=== PATIENT | male | born 1945 | race Caucasian/White ===

== ENCOUNTER → 2016-09-30 | Outpatient (CLI) | payer OTHER ==
[~2016-09-30] MED LIST: ATOR1TAB18 PO; BREO1INH3 INH; LASI40TA PO; LEVA500T PO; METO-209 PO; NITR4TASL SL; NYST50SS SS; OCUVTAB4 PO; OMEP20CA3 PO; TRAM37.53 PO; VITMTA PO; WARF-18 PO; WARF-23 PO
[2016-09-30 16:14] LABS: INR 2.68
== END ==
LOC: M LAB 15:20
PROVIDERS: ATTEND Nurse Practitioner Family
DX: I48.91 Unspecified atrial fibrillation (principal); Z51.81 Encounter for therapeutic drug level monitoring; Z79.01 Long term (current) use of anticoagulants

== ENCOUNTER → 2016-10-05 | Outpatient (CLI) | payer OTHER ==
[2016-10-05 16:32] LABS: MEAN CORPUSCULAR HEMOGLOBIN 29.5 pg (27.0-33.0); MEAN CORPUSCULAR HGB CONC 32.2 g/dl (32.0-36.5); MEAN CORPUSCULAR VOLUME 91.7 fl (80.0-96.0)
[2016-10-05 16:39] LABS: ALBUMIN 3.9 GM/DL (3.2-5.2); ALBUMIN/GLOBULIN RATIO 1.05 (1.00-1.93); ALKALINE PHOSPHATASE 197 U/L (45-117); ALT/SGPT 46 U/L (12-78); ANION GAP 5 MEQ/L (8-16); AST/SGOT 32 U/L (15-37); BILIRUBIN,TOTAL 1.1 MG/DL (0.2-1.0); BLOOD UREA NITROGEN 21 MG/DL (7-18); CALCIUM LEVEL 8.5 MG/DL (8.8-10.2); CARBON DIOXIDE LEVEL 35 MEQ/L (21-32); CHLORIDE LEVEL 102 MEQ/L (98-107); CREATININE FOR GFR 0.93 MG/DL (0.70-1.30); GLOMERULAR FILTRATION RATE > 60.0 (>42); GLUCOSE, FASTING 99 MG/DL (83-110); MAGNESIUM LEVEL 2.1 MG/DL (1.8-2.4); POTASSIUM SERUM 3.7 MEQ/L (3.5-5.1); SODIUM LEVEL 142 MEQ/L (136-145); TOTAL PROTEIN 7.6 GM/DL (6.4-8.2)
== END ==
LOC: M LAB 15:28
PROVIDERS: ATTEND Physician Assistant
DX: I48.2 Chronic atrial fibrillation (principal)

== ENCOUNTER → 2016-10-31 | Outpatient (CLI) | payer OTHER ==
[2016-10-31 16:50] LABS: INR 2.65
== END | disposition home or self-care (01) ==
LOC: M LAB 16:01
PROVIDERS: ATTEND Physician Assistant
DX: I50.32 Chronic diastolic (congestive) heart failure (principal); Z51.81 Encounter for therapeutic drug level monitoring; Z79.01 Long term (current) use of anticoagulants

== ENCOUNTER → 2016-11-29 | Outpatient (CLI) | payer OTHER ==
[2016-11-29 18:05] LABS: INR 2.19
== END ==
LOC: M LAB 15:58
PROVIDERS: ATTEND Nurse Practitioner Family
DX: I48.2 Chronic atrial fibrillation (principal); Z51.81 Encounter for therapeutic drug level monitoring; Z79.01 Long term (current) use of anticoagulants

== ENCOUNTER → 2016-12-01 | Outpatient (CLI) | payer OTHER ==
[2016-12-01 16:56] LABS: MEAN CORPUSCULAR HEMOGLOBIN 31.2 pg (27.0-33.0); MEAN CORPUSCULAR HGB CONC 33.5 g/dl (32.0-36.5); MEAN CORPUSCULAR VOLUME 93.1 fl (80.0-96.0); WHITE BLOOD COUNT 6.4 K/mm3 (4.0-10.0)
[2016-12-01 17:15] LABS: ALBUMIN 3.9 GM/DL (3.2-5.2); ALBUMIN/GLOBULIN RATIO 1.05 (1.00-1.93); ALKALINE PHOSPHATASE 173 U/L (45-117); ALT/SGPT 48 U/L (12-78); AST/SGOT 33 U/L (15-37); BILIRUBIN,DIRECT 0.3 MG/DL (0.0-0.2); BILIRUBIN,TOTAL 0.9 MG/DL (0.2-1.0); PERCENT SATURATION 23.8 % (19.7-37.4); TOTAL IRON BINDING CAPACITY 395 UG/DL (250-450); TOTAL PROTEIN 7.6 GM/DL (6.4-8.2)
[2016-12-01 21:14] LABS: BASOPHILS 1 % (0-4); EOSINOPHILS 10 % (0-5); SMUDGE CELLS 2+
== END ==
LOC: M LAB 16:14
PROVIDERS: ATTEND Family Medicine
DX: R74.0 Nonspecific elevation of levels of transaminase and lactic acid dehydrogenase [LDH] (principal); Z79.899 Other long term (current) drug therapy; Z11.59 Encounter for screening for other viral diseases

== ENCOUNTER → 2016-12-16 | Outpatient (CLI) | payer OTHER ==
--- NOTE | 2016-12-16 13:53 | REP ---
Right upper quadrant sonography: History: Elevated transaminases and liver function studies. Findings: Scanning through the right upper quadrant of the abdomen demonstrates normal sized thin-walled gallbladder without evidence of stone or polyp. Common bile duct is normal measuring 0.2 cm in greatest diameter. No focal liver lesion is seen. The body and tail of the pancreas are obscured by abdominal gas. There is no evidence of ascites or right renal abnormality. The right kidney measures 12.8 x 6.5 x 4.7 cm. Impression: No abnormality noted. Body and tail of the pancreas are obscured by abdominal gas. Signed by Jose Angel Ghosh MD 12/16/2016 03:13 P
== END ==
LOC: M RAD 09:41
PROVIDERS: ATTEND Family Medicine
DX: R74.0 Nonspecific elevation of levels of transaminase and lactic acid dehydrogenase [LDH] (principal)

== ENCOUNTER → 2016-12-29 | Outpatient (CLI) | payer OTHER ==
[2016-12-29 17:38] LABS: INR 2.13
== END ==
LOC: M LAB 16:08
PROVIDERS: ATTEND Nurse Practitioner Family
DX: I48.2 Chronic atrial fibrillation (principal)

== ENCOUNTER → 2017-01-31 | Outpatient (CLI) | payer OTHER ==
[2017-01-31 15:37] LABS: INR 2.39
== END ==
LOC: M LAB 15:01
PROVIDERS: ATTEND Physician Assistant
DX: I48.2 Chronic atrial fibrillation (principal)

== ENCOUNTER → 2017-03-02 | Outpatient (CLI) | payer OTHER ==
[~2017-03-02] MED LIST changes: -ATOR1TAB18 PO; +ATOR80TA59 PO; +LEVA1TAB2 PO; -LEVA500T PO; -METO-209 PO; +METO1TAB33 PO
[2017-03-02 16:19] LABS: INR 2.08
== END ==
LOC: M LAB 15:28
PROVIDERS: ATTEND Nurse Practitioner Family
DX: Z51.81 Encounter for therapeutic drug level monitoring (principal); Z79.01 Long term (current) use of anticoagulants; I48.2 Chronic atrial fibrillation

== ENCOUNTER → 2017-04-01 | Outpatient (CLI) | payer OTHER ==
[2017-04-01 16:01] LABS: INR 2.69
== END ==
LOC: M LAB 15:17
PROVIDERS: ATTEND Internal Medicine Cardiovascular Disease
DX: Z51.81 Encounter for therapeutic drug level monitoring (principal); Z79.01 Long term (current) use of anticoagulants; I48.2 Chronic atrial fibrillation

== ENCOUNTER → 2017-04-07 | Outpatient (CLI) | payer OTHER ==
[2017-04-07 13:29] LABS: MEAN CORPUSCULAR HEMOGLOBIN 30.3 pg (27.0-33.0); MEAN CORPUSCULAR HGB CONC 33.4 g/dl (32.0-36.5); MEAN CORPUSCULAR VOLUME 90.6 fl (80.0-96.0); RED CELL DISTRIBUTION WIDTH 13.2 % (11.5-14.5); WHITE BLOOD COUNT 5.9 K/mm3 (4.0-10.0)
[2017-04-07 14:21] LABS: ALBUMIN 3.8 GM/DL (3.2-5.2); ALKALINE PHOSPHATASE 172 U/L (45-117); ALT/SGPT 37 U/L (12-78); ANION GAP 7 MEQ/L (8-16); AST/SGOT 30 U/L (15-37); BILIRUBIN,TOTAL 1.3 MG/DL (0.2-1.0); BLOOD UREA NITROGEN 17 MG/DL (7-18); CALCIUM LEVEL 8.7 MG/DL (8.8-10.2); CARBON DIOXIDE LEVEL 33 MEQ/L (21-32); CHLORIDE LEVEL 103 MEQ/L (98-107); CHOLESTEROL LEVEL 105 MG/DL (<200); CREATININE FOR GFR 0.81 MG/DL (0.70-1.30); GLOMERULAR FILTRATION RATE > 60.0 (>42); GLUCOSE, FASTING 105 MG/DL (83-110); MAGNESIUM LEVEL 2.4 MG/DL (1.8-2.4); POTASSIUM SERUM 3.7 MEQ/L (3.5-5.1); SODIUM LEVEL 143 MEQ/L (136-145); TOTAL PROTEIN 7.6 GM/DL (6.4-8.2); TRIGLYCERIDES LEVEL 165 MG/DL (<150)
== END ==
LOC: M LAB 12:48
PROVIDERS: ATTEND Physician Assistant
DX: I25.10 Atherosclerotic heart disease of native coronary artery without angina pectoris (principal); I48.2 Chronic atrial fibrillation; I50.32 Chronic diastolic (congestive) heart failure; E78.00 Pure hypercholesterolemia, unspecified

== ENCOUNTER → 2017-04-20 | Outpatient (CLI) | payer OTHER ==
[2017-04-20 15:32] LABS: INR 3.15
== END ==
LOC: M LAB 15:09
PROVIDERS: ATTEND Internal Medicine Cardiovascular Disease
DX: Z51.81 Encounter for therapeutic drug level monitoring (principal); Z79.01 Long term (current) use of anticoagulants; I48.2 Chronic atrial fibrillation

== ENCOUNTER → 2017-04-24 | Outpatient (CLI) | payer OTHER ==
[2017-04-24 18:33] LABS: INR 2.97
== END ==
LOC: M LAB 15:07
PROVIDERS: ATTEND Physician Assistant
DX: I48.2 Chronic atrial fibrillation (principal)

== ENCOUNTER → 2017-05-09 | Outpatient (CLI) | payer OTHER ==
[2017-05-09 16:27] LABS: INR 1.56
== END ==
LOC: M LAB 15:12
PROVIDERS: ATTEND Nurse Practitioner Family
DX: I48.2 Chronic atrial fibrillation (principal)

== ENCOUNTER → 2017-05-24 | Outpatient (CLI) | payer OTHER ==
[2017-05-24 15:23] LABS: INR 1.43
== END ==
LOC: M LAB 14:40
PROVIDERS: ATTEND Internal Medicine Cardiovascular Disease
DX: I48.2 Chronic atrial fibrillation (principal); Z51.81 Encounter for therapeutic drug level monitoring; Z79.01 Long term (current) use of anticoagulants

== ENCOUNTER → 2017-06-14 | Outpatient (CLI) | payer OTHER ==
[2017-06-14 18:39] LABS: INR 1.46
== END ==
LOC: M LAB 15:41
PROVIDERS: ATTEND Nurse Practitioner Family
DX: I48.2 Chronic atrial fibrillation (principal)

== ENCOUNTER → 2017-06-29 | Outpatient (CLI) | payer OTHER ==
[2017-06-29 16:53] LABS: INR 1.62
== END ==
LOC: M LAB 15:41
PROVIDERS: ATTEND Physician Assistant
DX: I48.2 Chronic atrial fibrillation (principal)

== ENCOUNTER → 2017-07-13 | Outpatient (CLI) | payer OTHER ==
[2017-07-13 16:28] LABS: INR 2.06
== END ==
LOC: M LAB 15:31
PROVIDERS: ATTEND Physician Assistant
DX: Z51.81 Encounter for therapeutic drug level monitoring (principal); Z79.01 Long term (current) use of anticoagulants; I48.2 Chronic atrial fibrillation

== ENCOUNTER → 2017-08-08 | Outpatient (CLI) | payer OTHER ==
[2017-08-08 16:48] LABS: INR 2.55
== END ==
LOC: M LAB 15:58
PROVIDERS: ATTEND Physician Assistant
DX: I48.2 Chronic atrial fibrillation (principal)

== ENCOUNTER → 2017-09-05 | Outpatient (CLI) | payer OTHER ==
[2017-09-05 13:33] LABS: INR 2.74; PROTHROMBIN TIME 30.2 SECONDS (12.4-14.5)
== END ==
LOC: M LAB 12:59
DX: I48.2 Chronic atrial fibrillation (principal)
CPT/HCPCS: 85610

== ENCOUNTER → 2017-10-03 | Outpatient (CLI) | payer OTHER ==
[2017-10-03 16:10] LABS: INR 4.31; PROTHROMBIN TIME 43.6 SECONDS (12.4-14.5)
== END ==
LOC: M LAB 14:32
DX: I48.2 Chronic atrial fibrillation (principal)
CPT/HCPCS: 85610

== ENCOUNTER → 2017-10-06 | Outpatient (CLI) | payer OTHER ==
[2017-10-06 09:33] LABS: INR 3.65; PROTHROMBIN TIME 38.1 SECONDS (12.4-14.5)
== END ==
LOC: M LAB 08:25
DX: I48.2 Chronic atrial fibrillation (principal)
CPT/HCPCS: 85610

== ENCOUNTER → 2017-10-09 | Outpatient (CLI) | payer OTHER ==
[2017-10-09 10:56] LABS: HEMATOCRIT 44.4 % (42.0-52.0); HEMOGLOBIN 14.2 g/dl (14.0-18.0); MEAN CORPUSCULAR HEMOGLOBIN 28.9 pg (27.0-33.0); MEAN CORPUSCULAR VOLUME 90.2 fl (80.0-96.0); PLATELET COUNT, AUTOMATED 210 10^3/uL (150-450); RED BLOOD COUNT 4.92 10^6/uL (4.30-6.10); RED CELL DISTRIBUTION WIDTH 13.5 % (11.5-14.5); WHITE BLOOD COUNT 7.2 10^3/uL (4.0-10.0)
[2017-10-09 11:27] LABS: ALBUMIN 3.5 GM/DL (3.2-5.2); ALBUMIN/GLOBULIN RATIO 0.81 (1.00-1.93); ALKALINE PHOSPHATASE 192 U/L (45-117); ALT/SGPT 102 U/L (12-78); ANION GAP 7 MEQ/L (8-16); AST/SGOT 58 U/L (7-37); BILIRUBIN,TOTAL 1.2 MG/DL (0.2-1.0); BLOOD UREA NITROGEN 17 MG/DL (7-18); CARBON DIOXIDE LEVEL 39 MEQ/L (21-32); CHLORIDE LEVEL 94 MEQ/L (98-107); GLOMERULAR FILTRATION RATE > 60.0 (>42); GLUCOSE, FASTING 108 MG/DL (70-100); MAGNESIUM LEVEL 2.3 MG/DL (1.8-2.4); POTASSIUM SERUM 4.2 MEQ/L (3.5-5.1); SODIUM LEVEL 140 MEQ/L (136-145); TOTAL PROTEIN 7.8 GM/DL (6.4-8.2)
== END ==
LOC: M LAB 10:15
DX: I25.10 Atherosclerotic heart disease of native coronary artery without angina pectoris (principal); I48.2 Chronic atrial fibrillation; I50.32 Chronic diastolic (congestive) heart failure; E78.00 Pure hypercholesterolemia, unspecified
CPT/HCPCS: 83735

== ENCOUNTER → 2017-10-16 | Outpatient (CLI) | payer OTHER ==
[2017-10-16 15:53] LABS: PROTHROMBIN TIME 27.1 SECONDS (12.4-14.5)
== END ==
LOC: M LAB 15:21
DX: Z79.01 Long term (current) use of anticoagulants (principal); I48.2 Chronic atrial fibrillation
CPT/HCPCS: 85610

== ENCOUNTER → 2017-10-31 | Outpatient (CLI) | payer OTHER ==
[2017-10-31 15:46] LABS: INR 2.67; PROTHROMBIN TIME 29.6 SECONDS (12.4-14.5)
== END ==
LOC: M LAB 15:07
DX: I48.2 Chronic atrial fibrillation (principal); Z79.01 Long term (current) use of anticoagulants
CPT/HCPCS: 85610

== ENCOUNTER → 2017-11-27 | Outpatient (CLI) | payer OTHER ==
[2017-11-27 17:42] LABS: INR 2.49
== END ==
LOC: M LAB 16:29
DX: Z51.81 Encounter for therapeutic drug level monitoring (principal); Z79.01 Long term (current) use of anticoagulants; I48.2 Chronic atrial fibrillation
CPT/HCPCS: 85610

== ENCOUNTER → 2017-12-18 | Outpatient (CLI) | payer OTHER ==
[2017-12-18 13:44] LABS: INR 2.07
== END ==
LOC: M LAB 12:52
DX: I48.2 Chronic atrial fibrillation (principal); Z79.01 Long term (current) use of anticoagulants
CPT/HCPCS: 85610

== ENCOUNTER → 2017-12-25 | Outpatient (CLI) | payer OTHER ==
[2017-12-25 17:23] LABS: INR 2.18; PROTHROMBIN TIME 25.1 SECONDS (12.4-14.5)
== END ==
LOC: M LAB 16:40
DX: I48.2 Chronic atrial fibrillation (principal)
CPT/HCPCS: 85610

== ENCOUNTER → 2018-01-02 | Outpatient (CLI) | payer OTHER ==
[2018-01-02 16:54] LABS: ALBUMIN 3.9 GM/DL (3.2-5.2); ALBUMIN/GLOBULIN RATIO 0.95 (1.00-1.93); ALKALINE PHOSPHATASE 182 U/L (45-117); ALT/SGPT 33 U/L (12-78); AST/SGOT 27 U/L (7-37); BILIRUBIN,DIRECT 0.3 MG/DL (0.0-0.2); BILIRUBIN,TOTAL 0.9 MG/DL (0.2-1.0)
== END ==
LOC: M LAB 15:47
DX: E78.00 Pure hypercholesterolemia, unspecified (principal)
CPT/HCPCS: 80076

== ENCOUNTER → 2018-01-23 | Outpatient (CLI) | payer OTHER ==
[2018-01-23 15:21] LABS: INR 1.76; PROTHROMBIN TIME 21.1 SECONDS (12.4-14.5)
== END ==
LOC: M LAB 14:16
DX: I48.2 Chronic atrial fibrillation (principal)
CPT/HCPCS: 85610

== ENCOUNTER → 2018-02-06 | Outpatient (CLI) | payer MEDICARE ==
[2018-02-06 16:25] LABS: INR 2.31; PROTHROMBIN TIME 26.3 SECONDS (12.4-14.5)
== END ==
LOC: M LAB 15:40
DX: I48.2 Chronic atrial fibrillation (principal); Z51.81 Encounter for therapeutic drug level monitoring; Z79.01 Long term (current) use of anticoagulants
CPT/HCPCS: 85610

== ENCOUNTER → 2018-02-21 | Outpatient (CLI) | payer MEDICARE ==
[2018-02-21 16:10] LABS: INR 2.41; PROTHROMBIN TIME 27.1 SECONDS (12.4-14.5)
== END ==
LOC: M LAB 14:44
DX: Z51.81 Encounter for therapeutic drug level monitoring (principal); Z79.01 Long term (current) use of anticoagulants; I48.2 Chronic atrial fibrillation
CPT/HCPCS: 85610

== ENCOUNTER → 2018-03-21 | Outpatient (CLI) | payer MEDICARE | LOC: M LAB 14:48 | DX: I48.2 Chronic atrial fibrillation (principal) | CPT/HCPCS: 85610 ==

== ENCOUNTER → 2018-04-09 | Outpatient (CLI) | payer MEDICARE ==
[2018-04-09 13:21] LABS: HEMATOCRIT 45.6 % (42.0-52.0); HEMOGLOBIN 14.6 g/dl (13.5-17.5); MEAN CORPUSCULAR HEMOGLOBIN 28.6 pg (27.0-33.0); MEAN CORPUSCULAR VOLUME 89.4 fl (80.0-96.0); PLATELET COUNT, AUTOMATED 140 10^3/uL (150-450); RED CELL DISTRIBUTION WIDTH 14.6 % (11.5-14.5); WHITE BLOOD COUNT 9.3 10^3/uL (4.0-10.0)
[2018-04-09 13:52] LABS: ALBUMIN 3.5 GM/DL (3.2-5.2); ALKALINE PHOSPHATASE 128 U/L (45-117); ALT/SGPT 70 U/L (12-78); ANION GAP 7 MEQ/L (8-16); AST/SGOT 35 U/L (7-37); BILIRUBIN,TOTAL 1.1 MG/DL (0.2-1.0); BLOOD UREA NITROGEN 25 MG/DL (7-18); CALCIUM LEVEL 8.4 MG/DL (8.8-10.2); CARBON DIOXIDE LEVEL 35 MEQ/L (21-32); CHLORIDE LEVEL 101 MEQ/L (98-107); CHOLESTEROL LEVEL 126 MG/DL (<200); CHOLESTEROL RISK RATIO 2.333 (<5); CREATININE FOR GFR 0.99 MG/DL (0.70-1.30); GLOMERULAR FILTRATION RATE > 60.0 (>42); GLUCOSE, FASTING 98 MG/DL (70-100); HDL CHOLESTEROL 54 MG/DL (>40); LDL CHOLESTEROL 32.4 MG/DL (<100); MAGNESIUM LEVEL 2.4 MG/DL (1.8-2.4); NON-HDL-C 72 MG/DL; POTASSIUM SERUM 3.9 MEQ/L (3.5-5.1); SODIUM LEVEL 143 MEQ/L (136-145); TOTAL PROTEIN 7.4 GM/DL (6.4-8.2); TRIGLYCERIDES LEVEL 198 MG/DL (<150)
== END ==
LOC: M LAB 12:53
DX: I50.32 Chronic diastolic (congestive) heart failure (principal); E78.00 Pure hypercholesterolemia, unspecified; I25.10 Atherosclerotic heart disease of native coronary artery without angina pectoris; I48.2 Chronic atrial fibrillation; Z51.81 Encounter for therapeutic drug level monitoring; Z79.01 Long term (current) use of anticoagulants
CPT/HCPCS: 83735

== ENCOUNTER → 2018-04-09 | Outpatient (CLI) | payer MEDICARE ==
[2018-04-09 13:36] LABS: INR 4.63; PROTHROMBIN TIME 44.9 SECONDS (12.1-14.4)
== END ==
LOC: M LAB 12:49
DX: I48.2 Chronic atrial fibrillation (principal); Z51.81 Encounter for therapeutic drug level monitoring; Z79.01 Long term (current) use of anticoagulants
CPT/HCPCS: 85610

== ENCOUNTER → 2018-04-18 | Outpatient (CLI) | payer MEDICARE ==
[2018-04-18 14:14] LABS: INR 2.89; PROTHROMBIN TIME 30.9 SECONDS (12.1-14.4)
== END ==
LOC: M LAB 13:38
DX: Z51.81 Encounter for therapeutic drug level monitoring (principal); Z79.01 Long term (current) use of anticoagulants; I48.2 Chronic atrial fibrillation
CPT/HCPCS: 85610

== ENCOUNTER → 2018-05-14 | Outpatient (CLI) | payer MEDICARE ==
[2018-05-14 18:04] LABS: INR 3.13; PROTHROMBIN TIME 32.9 SECONDS (12.1-14.4)
== END ==
LOC: M LAB 17:18
DX: I48.2 Chronic atrial fibrillation (principal)
CPT/HCPCS: 85610

== ENCOUNTER → 2018-05-29 | Outpatient (CLI) | payer MEDICARE ==
[2018-05-29 15:57] LABS: INR 1.53; PROTHROMBIN TIME 18.6 SECONDS (12.1-14.4)
== END ==
LOC: M LAB 15:28
DX: I48.2 Chronic atrial fibrillation (principal)
CPT/HCPCS: 85610

== ENCOUNTER → 2018-06-14 | Outpatient (CLI) | payer MEDICARE ==
[2018-06-14 16:09] LABS: INR 1.83; PROTHROMBIN TIME 21.5 SECONDS (12.1-14.4)
== END ==
LOC: M LAB 15:00
DX: I48.2 Chronic atrial fibrillation (principal)
CPT/HCPCS: 85610

== ENCOUNTER → 2018-06-27 | Outpatient (CLI) | payer MEDICARE ==
[2018-06-27 16:15] LABS: INR 2.39; PROTHROMBIN TIME 26.6 SECONDS (12.1-14.4)
== END ==
LOC: M LAB 15:30
DX: I48.2 Chronic atrial fibrillation (principal)
CPT/HCPCS: 85610

== ENCOUNTER → 2018-07-10 | Outpatient (REF) | payer MEDICARE ==
[2018-07-10 17:38] LABS: NT-PRO BNP 573 PG/ML (<125)
== END ==
LOC: M LAB REF 17:02
DX: R06.02 Shortness of breath (principal)
CPT/HCPCS: 83880

== ENCOUNTER → 2018-07-30 | Outpatient (CLI) | payer MEDICARE ==
[2018-07-30 16:29] LABS: ANION GAP 6 MEQ/L (8-16); BLOOD UREA NITROGEN 28 MG/DL (7-18); CALCIUM LEVEL 8.8 MG/DL (8.8-10.2); CARBON DIOXIDE LEVEL 37 MEQ/L (21-32); CHLORIDE LEVEL 96 MEQ/L (98-107); CREATININE FOR GFR 1.07 MG/DL (0.70-1.30); GLOMERULAR FILTRATION RATE > 60.0 (>42); GLUCOSE, FASTING 90 MG/DL (70-100); MAGNESIUM LEVEL 2.4 MG/DL (1.8-2.4); POTASSIUM SERUM 3.8 MEQ/L (3.5-5.1); SODIUM LEVEL 139 MEQ/L (136-145); THYROID STIMULATING HORMONE 0.492 uIU/ML (0.358-3.740)
== END ==
LOC: M LAB 15:05
DX: R06.02 Shortness of breath (principal); I48.2 Chronic atrial fibrillation; I50.32 Chronic diastolic (congestive) heart failure
CPT/HCPCS: 83735

== ENCOUNTER → 2018-07-31 | Outpatient (CLI) | payer MEDICARE ==
[2018-07-31 14:05] LABS: INR 2.62; PROTHROMBIN TIME 28.6 SECONDS (12.1-14.4)
== END ==
LOC: M LAB 13:21
DX: I48.2 Chronic atrial fibrillation (principal)
CPT/HCPCS: 85610

== ENCOUNTER → 2018-08-23 | Outpatient (CLI) | payer MEDICARE ==
[2018-08-23 15:50] LABS: INR 2.1
== END ==
LOC: M LAB 15:02
PROVIDERS: ATTEND Physician Assistant
DX: I48.2 Chronic atrial fibrillation (principal)

== ENCOUNTER → 2018-09-25 | Outpatient (CLI) | payer MEDICARE ==
[~2018-09-25] MED LIST changes: -LASI40TA PO; +LASI40TA9 PO
[2018-09-25 16:21] LABS: INR 1.79; PROTHROMBIN TIME 21.1 SECONDS (12.1-14.4)
== END ==
LOC: M LAB 15:32
PROVIDERS: ATTEND Physician Assistant
DX: I48.2 Chronic atrial fibrillation (principal)

== ENCOUNTER → 2018-10-09 | Outpatient (CLI) | payer MEDICARE ==
[2018-10-09 16:57] LABS: INR 2.07; PROTHROMBIN TIME 23.7 SECONDS (12.1-14.4)
== END ==
LOC: M LAB 15:56
PROVIDERS: ATTEND Physician Assistant
DX: I48.2 Chronic atrial fibrillation (principal)

== ENCOUNTER → 2018-10-15 | Outpatient (CLI) | payer MEDICARE ==
[2018-10-15 18:00] LABS: INR 2.45; PROTHROMBIN TIME 27.1 SECONDS (12.1-14.4)
== END ==
LOC: M LAB 15:59
PROVIDERS: ATTEND Physician Assistant
DX: I48.2 Chronic atrial fibrillation (principal); Z51.81 Encounter for therapeutic drug level monitoring; Z79.01 Long term (current) use of anticoagulants

== ENCOUNTER → 2018-10-15 | Outpatient (CLI) | payer MEDICARE ==
[2018-10-15 17:41] LABS: HEMATOCRIT 47.3 % (42.0-52.0); HEMOGLOBIN 14.6 g/dl (13.5-17.5); MEAN CORPUSCULAR HEMOGLOBIN 28.2 pg (27.0-33.0); MEAN CORPUSCULAR HGB CONC 30.9 g/dl (32.0-36.5); MEAN CORPUSCULAR VOLUME 91.5 fl (80.0-96.0); PLATELET COUNT, AUTOMATED 120 10^3/uL (150-450); RED BLOOD COUNT 5.17 10^6/uL (4.30-6.10); WHITE BLOOD COUNT 6.5 10^3/uL (4.0-10.0)
[2018-10-15 17:44] LABS: BLOOD UREA NITROGEN 17 MG/DL (7-18); CALCIUM LEVEL 8.8 MG/DL (8.8-10.2); CARBON DIOXIDE LEVEL 36 MEQ/L (21-32); CHLORIDE LEVEL 98 MEQ/L (98-107); CREATININE FOR GFR 0.85 MG/DL (0.70-1.30); GLOMERULAR FILTRATION RATE > 60.0 (>42); GLUCOSE, FASTING 90 MG/DL (70-100); MAGNESIUM LEVEL 2.3 MG/DL (1.8-2.4); POTASSIUM SERUM 4.5 MEQ/L (3.5-5.1); SODIUM LEVEL 139 MEQ/L (136-145)
== END ==
LOC: M LAB 15:54
PROVIDERS: ATTEND Physician Assistant
DX: I50.32 Chronic diastolic (congestive) heart failure (principal); I48.2 Chronic atrial fibrillation; Z51.81 Encounter for therapeutic drug level monitoring; Z79.01 Long term (current) use of anticoagulants

== ENCOUNTER → 2018-11-14 | Outpatient (CLI) | payer MEDICARE ==
[2018-11-14 17:11] LABS: INR 2.15; PROTHROMBIN TIME 24.4 SECONDS (12.1-14.4)
== END ==
LOC: M LAB 15:23
PROVIDERS: ATTEND Physician Assistant
DX: I48.2 Chronic atrial fibrillation (principal)

== ENCOUNTER → 2018-12-18 | Outpatient (CLI) | payer MEDICARE ==
[2018-12-18 16:23] LABS: INR 2.87; PROTHROMBIN TIME 30.7 SECONDS (12.1-14.4)
== END ==
LOC: M LAB 15:49
PROVIDERS: ATTEND Physician Assistant
DX: I48.2 Chronic atrial fibrillation (principal); Z79.01 Long term (current) use of anticoagulants

== ENCOUNTER → 2019-01-08 | Outpatient (CLI) | payer MEDICARE ==
--- NOTE | 2019-01-09 02:03 | REP ---
Clinical: Cough. Technique: PA and lateral. Comparison: 07/10/2018. Findings: Mediastinum and cardiac silhouette are stable with evidence for prior sternotomy and CABG. Lung fernandez demonstrate chronic primarily in the lower lobe pleuroparenchymal changes similar to prior examination. No obvious acute consolidation, effusion, or pneumothorax. Skeletal structures are intact. Impression: Chronic stable changes. If the patient remains symptomatic consider chest CT for further investigation. Electronically Signed by David Muse MD 01/09/2019 01:54 A
== END ==
LOC: M SMT 15:07
PROVIDERS: ATTEND Nurse Practitioner Adult Health
DX: R05 Cough (principal)

== ENCOUNTER → 2019-01-09 | Outpatient (REF) | payer MEDICARE | LOC: M LAB REF 18:00 | PROVIDERS: ATTEND Nurse Practitioner Adult Health | DX: R05 Cough (principal) ==

== ENCOUNTER → 2019-01-16 | Outpatient (CLI) | payer MEDICARE ==
[2019-01-16 16:12] LABS: INR 1.76; PROTHROMBIN TIME 20.8 SECONDS (12.1-14.4)
== END ==
LOC: M LAB 15:08
PROVIDERS: ATTEND Physician Assistant
DX: I48.2 Chronic atrial fibrillation (principal)

== ENCOUNTER → 2019-01-21 | Outpatient (CLI) | payer MEDICARE ==
[2019-01-21 19:56] LABS: BLOOD UREA NITROGEN 19 MG/DL (7-18); CALCIUM LEVEL 8.7 MG/DL (8.8-10.2); CARBON DIOXIDE LEVEL 32 MEQ/L (21-32); CHLORIDE LEVEL 102 MEQ/L (98-107); CREATININE FOR GFR 0.87 MG/DL (0.70-1.30); GLOMERULAR FILTRATION RATE > 60.0 (>42); GLUCOSE, FASTING 101 MG/DL (70-100); POTASSIUM SERUM 4.3 MEQ/L (3.5-5.1); SODIUM LEVEL 140 MEQ/L (136-145)
== END ==
LOC: M LAB 15:16
PROVIDERS: ATTEND Physician Assistant
DX: I50.32 Chronic diastolic (congestive) heart failure (principal)

== ENCOUNTER → 2019-01-31 | Outpatient (CLI) | payer MEDICARE ==
[2019-01-31 16:52] LABS: INR 1.87; PROTHROMBIN TIME 21.9 SECONDS (12.1-14.4)
== END ==
LOC: M LAB 15:49
PROVIDERS: ATTEND Physician Assistant
DX: I48.2 Chronic atrial fibrillation (principal); R05 Cough

== ENCOUNTER → 2019-01-31 | Outpatient (REF) | payer MEDICARE | LOC: M LAB REF 17:27 | PROVIDERS: ATTEND Nurse Practitioner Adult Health | DX: R05 Cough (principal) ==

== ENCOUNTER → 2019-02-20 | Outpatient (CLI) | payer MEDICARE ==
--- NOTE | 2019-02-21 06:31 | REP ---
REASON: Cough. COMPARISON: Multiple, the latest 01/08/2019. There has been previous median sternotomy status quo. There is global cardiomegaly status quo. There is good opacity that are seen in the lung bases representing a change from the prior exam likely representing subsegmental atelectatic changes. The pleural angles are sharp. Chronic change is seen involving the imaged spine. IMPRESSION: Likely bibasilar subsegmental atelectatic change and other findings as described above. Correlate clinically. Electronically Signed by Markell Roque DO 02/21/2019 12:29 P
== END ==
LOC: M RAD 15:58
PROVIDERS: ATTEND Nurse Practitioner Adult Health
DX: I51.7 Cardiomegaly (principal); Z86.79 Personal history of other diseases of the circulatory system

== ENCOUNTER → 2019-02-25 | Outpatient (CLI) | payer MEDICARE ==
[2019-02-25 15:09] LABS: INR 2.2; PROTHROMBIN TIME 24.2 SECONDS (11.8-14.0)
== END ==
LOC: M LAB 14:39
PROVIDERS: ATTEND Physician Assistant
DX: I48.2 Chronic atrial fibrillation (principal)

== ENCOUNTER → 2019-03-25 | Outpatient (CLI) | payer MEDICARE ==
[~2019-03-25] MED LIST changes: -OMEP20CA3 PO; +OMEP20CA4 PO
[2019-03-25 16:29] LABS: INR 2.8; PROTHROMBIN TIME 29.4 SECONDS (11.8-14.0)
== END ==
LOC: M LAB 15:23
PROVIDERS: ATTEND Physician Assistant
DX: I48.2 Chronic atrial fibrillation (principal)

== ENCOUNTER 2019-04-18 09:42 | Inpatient (IN) | payer MEDICARE ==
[~2019-04-18] VITALS: Ht 167.6 cm; Wt 84.0 kg
--- NOTE | 2019-04-18 10:19 | REP ---
REASON FOR EXAM: Dyspnea and cough. PRIORS: 02/20/2019. The technique utilized in obtaining the radiograph has magnified the cardiac silhouette and accentuated the interstitial markings. There is global cardiomegaly accentuated by technique. There is fibrotic change with basilar predominance accentuated by technique. There is pulmonary vascular redistribution seen on this portable exam. It appears to have increased on the prior PA exam. The pleural angles remain sharp. There is no change in the osseous structures. Note is again made of previous median sternotomy. IMPRESSION: Portable technique as described above. I cannot rule out the possibility of early interstitial edema on this portable exam. This should be correlated clinically with appropriate followup. Consider a PA view of the chest when the patient is upright. There is cardiomegaly. Electronically Signed by Markell Roque DO 04/18/2019 03:29 P
[2019-04-18] MEDS ORDERED: [UNRECOGNIZED DRUG - OTHER] PO (10:27)
[2019-04-18] MEDS ORDERED: VITAMIN C PO (10:27)
[2019-04-18] MEDS ORDERED: VENTAER INH (10:27)
[2019-04-18] MEDS ORDERED: OCUVTAB PO (10:27)
[2019-04-18 10:29] LABS: BASO % 0.4 % (0.0-1.0); EOS % 0.1 % (0.0-3.0); HEMATOCRIT 45.1 % (42.0-52.0); HEMOGLOBIN 14.6 g/dl (13.5-17.5); LYMPH # 1.4 10^3/uL (1.5-4.5); LYMPH % 14.2 % (24.0-44.0); MEAN CORPUSCULAR HEMOGLOBIN 29.4 pg (27.0-33.0); MEAN CORPUSCULAR HGB CONC 32.4 g/dl (32.0-36.5); MEAN CORPUSCULAR VOLUME 90.7 fl (80.0-96.0); MONO # 1.1 10^3/uL (0.0-0.8); MONO % 11.1 % (0.0-5.0); NEUTROPHILS # 7.5 10^3/uL (1.8-7.7); NEUTROPHILS % 73.9 % (36.0-66.0); PLATELET COUNT, AUTOMATED 126 10^3/uL (150-450); RED BLOOD COUNT 4.97 10^6/uL (4.30-6.10); WHITE BLOOD COUNT 10.2 10^3/uL (4.0-10.0)
[2019-04-18 10:38] LABS: INR 2.22; PROTHROMBIN TIME 24.4 SECONDS (11.8-14.0)
[2019-04-18] MEDS: IPRATROPIUM 0.5MG/ALBUTEROL 2.5MG INH SOL UD 3ML (DUONEB)(J7620) NEB SCH ×5 (10:41→20:00)
[2019-04-18 10:44] LABS: ABG BASE EXCESS 1.7 (-2.0-2.0); ABG HCO3 25.8 MEQ/L (22.0-26.0); ABG O2 SATURATION 94.9 % (95.0-99.0); ABG PARTIAL PRESSURE CO2 39.1 mmHg (35.0-45.0); ABG PARTIAL PRESSURE O2 68.1 mmHg (75.0-100.0); ABG STANDARD HCO3 25.9 MEQ/L (22.0-26.0); ABG pH (ARTERIAL) 7.438 UNITS (7.350-7.450)
[2019-04-18] MEDS: predniSONE 20 MG TAB PO ONE ×2 (10:55→11:12)
[2019-04-18 11:00] LABS: ALBUMIN 3.5 GM/DL (3.2-5.2); ALT/SGPT 23 U/L (12-78); BILIRUBIN,DIRECT 0.8 MG/DL (0.0-0.2); BILIRUBIN,TOTAL 2.5 MG/DL (0.2-1.0); BLOOD UREA NITROGEN 16 MG/DL (7-18); CALCIUM LEVEL 8.6 MG/DL (8.8-10.2); CARBON DIOXIDE LEVEL 31 MEQ/L (21-32); CHLORIDE LEVEL 97 MEQ/L (98-107); CK-MB VALUE MASS < 1.0 NG/ML (<3.6); CPK CREATINE PHOSPHOKINASE 70 U/L (39-308); GLOMERULAR FILTRATION RATE > 60.0 (>42); GLUCOSE, FASTING 120 MG/DL (70-100); MB/CK RELATIVE INDEX 1.43 (< OR =4); NT-PRO BNP 797 PG/ML (<450); POTASSIUM SERUM 3.9 MEQ/L (3.5-5.1); SODIUM LEVEL 135 MEQ/L (136-145); THYROID STIMULATING HORMONE 0.813 uIU/ML (0.358-3.740); TOTAL PROTEIN 7.8 GM/DL (6.4-8.2); TROPONIN I < 0.02 NG/ML (< 0.10)
[2019-04-18] MEDS ORDERED: ISOVUE-370 76% 100ML VIAL (Q9967) As Ordered ONE (12:34)
--- NOTE | 2019-04-18 13:08 | REP ---
REASON FOR EXAM: Dyspnea. COMPARISON EXAMINATION: 04/18/2019 which is the latest prior with other older priors reviewed. There is global cardiomegaly status quo. There has been previous median sternotomy. There is fibrotic change seen throughout the lung fernandez with basilar predominance status quo. No acute patchy parenchymal opacities or pleural effusions have developed. There is no change in the osseous structures. IMPRESSION: Cardiomegaly and chronic fibrotic changes. There is no evidence of acute cardiopulmonary disease. There is no evidence of interstitial edema. When today's PA view of the chest is compared to the latest prior PA view of the chest of 02/20/2019 there is no acute change. There is chronic central pulmonary venous engorgement status quo. There is no change in the osseous structures. Global cardiomegaly and chronic changes as described above. There is no evidence of acute cardiopulmonary disease. Correlate clinically to rule out the possibility of the acute disease superimposed upon chronic change. Electronically Signed by Markell Roque DO 04/18/2019 03:43 P
--- NOTE | 2019-04-18 14:21 | REP ---
CT pulmonary angiogram: With IV contrast. History: Dyspnea. Comparison studies: No comparison CT study. Contrast dose: 75 mL of Isovue [address] technique: Helical scanning is acquired and overlapping 1.5 mm and contiguous 3 mm axial images are reformatted. In addition, maximum intensity projection and multiplanar re-formation images are generated in sagittal and coronal imaging projections. CT pulmonary angiographic findings: There is good opacification of the pulmonary arterial tree. There is no CT evidence of pulmonary embolism. There is no evidence of aortic dissection or aneurysm. No mediastinal mass or adenopathy is seen. Moderate cardiac enlargement is seen. Four chamber enlargement is observed. There is reflux of contrast opacified blood into the intrahepatic vena cava and the hepatic veins consistent with right heart failure. There is no evidence of pleural effusion or pericardial effusion. There are patchy areas of alveolar opacification in the right lower lobe, lingular segment, and right upper lobe. These changes may be asymmetric pulmonary edema or inflammatory changes. No pulmonary mass lesion is appreciated. The patient is status post prior median sternotomy. No adrenal lesion is observed. Impression: No CT evidence of pulmonary embolism. Moderate cardiomegaly. Right heart failure findings. Possible pulmonary edema versus inflammatory infiltrates in the lung fernandez. No pleural effusion. Electronically Signed by Jose Angel Ghosh MD 04/18/2019 05:32 P
[2019-04-18] MEDS ORDERED: ACET-683 PO (15:06)
[2019-04-18] MEDS ORDERED: VITA-158 PO (15:06)
[2019-04-18] MEDS ORDERED: D-10TAB3 PO (15:06)
[2019-04-18] MEDS ORDERED: TESS100C PO (15:06)
[2019-04-18] MEDS ORDERED: IPRATROPIUM 0.5MG/ALBUTEROL 2.5MG INH SOL UD 3ML (DUONEB)(J7620) NEB PRN (15:45)
[2019-04-18] MEDS ORDERED: ACETAMINOPHEN 500 MG TAB PO PRN (15:45)
[2019-04-18] MEDS ORDERED: FUROSEMIDE 100 MG/10 ML VIAL (J1940) IV ONE (15:45)
[2019-04-18 16:00] VITALS: BP 170/86
[2019-04-18] MEDS ORDERED: WARFARIN SOD 2.5 MG TAB PO SCH (17:00)
--- NOTE | 2019-04-18 17:27 | HPEPDOC ---
[facility] Medical History & Physical Date of Admission Apr 18, 2019 Date of Service: Apr 18, 2019 Primary Care Physician: MIKHAIL DIAS MD [facility] Attending Physician: EVE CASTILLO MD History and Physical CHIEF COMPLAINT: Dyspnea HISTORY OF PRESENT ILLNESS: Champ Varela is a 74-year-old male who presented to the emergency room today with increased shortness of breath over the past few days. He states he did have some sort of lung infection about a month ago which was treated with Levaquin prescribed by his environmental aid. He states he hasn't remember if he felt better after that, but over the past few days he's become increasingly short of breath. 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 He states that after he's been sitting for a while he feels his breathing goes back to normal and he can return to his work. He also notes that he has increased shortness of breath when he lays down flat and that he sometimes wakes up in the middle of the night unable to breathe. He states that 2 days ago he did feel very fatigued and did not eat much because he was so tired and weak. He states that this has improved somewhat since then. He states over this time he's had a cough as well which is been mostly nonproductive, but in the ED after nebulizer treatment he did cough up some white and yellow sputum. PAST MEDICAL HISTORY: 1. Asthma 2. Atrial fibrillation 3. CAD. 4. CHF. 5. Chronic pain. 6. GERD PAST SURGICAL HISTORY: 1. 5x coronary bypass 2. Orthopedic surgery of elbow and ankle 3. Cataracts SOCIAL HISTORY: Employment: [employer] Tobacco use: Never smoker ETOH:. Denies Illicit drug use: Denies IV drug use: Denies FAMILY HISTORY: Father: CHF Mother: of pneumonia ALLERGIES: Please see below. REVIEW OF SYSTEMS: CONSTITUTIONAL: Endorses chills, fatigue. Denies fevers, night sweats, significant change in weight HEENT: Denies headaches, sore throat, runny nose, ear pain CARDIOVASCULAR: Endorses shortness of breath, orthopnea, PND, palpitations, increased leg swelling. Denies chest pain. RESPIRATORY: Endorses cough is mostly nonproductive, wheezing. Denies coughing up blood. GASTROINTESTINAL: Denies nausea, vomiting, abdominal pain, diarrhea, constipati on, blood in stool. GENITOURINARY: Denies dysuria, urinary urgency SKIN: Denies new rash or lesions. MUSCULOSKELETAL: Denies new joint pains or muscle aches. NEUROLOGICAL: Denies confusion, weakness PSYCHIATRIC: Denies change in mood. HOME MEDICATIONS: Please see below. PHYSICAL EXAMINATION: VITAL SIGNS: Temperature 96.9, pulse 93, respiratory rate, 20, blood pressure 139/73, pulse oximetry 92% on room air. GENERAL APPEARANCE: Alert, comfortable, sitting up on the edge of the bed, no acute distress. HEENT: Normocephalic, atraumatic, moist mucous membranes, PERRLA, EOMI. NECK: JVD present up to just above the mid neck with positive hepatojugular reflux. No lymphadenopathy appreciated CARDIOVASCULAR: Regular rate rate, irregular rhythm, normal S1 and S2, no murmurs, rubs or gallops. LUNGS: High-pitched wheezing present in bilateral upper lobes. Coarse rhonchi and crackles present in the left lower lobe. Right lower lobe clear to auscultation. ABDOMEN: Soft, nontender, nondistended, bowel sounds present, no masses or hepatosplenomegaly appreciated MUSCULOSKELETAL:. Strength 5/5 in all 4 extremities. EXTREMITIES: 2+ pitting edema in the left lower extremity and trace to 1+ pitting edema in the right lower extremity. Pulses 2 out of 4 in posterior tibial and radial arteries. NEUROLOGICAL: Alert and oriented 3 to person, place and location radial nerves 212 grossly intact. No focal deficits appreciated. PSYCHIATRIC: Mood and affect normal LABORATORY DATA: See below. IMAGING: CXR 04/18: Cardiomegaly and chronic fibrotic changes. There is no evidence of acute cardiopulmonary disease. There is no evidence of interstitial edema. When today's PA view of the chest is compared to the latest prior PA view of the chest of 02/20/2019 there is no acute change. There is chronic central pulmonary venous engorgement status quo. There is no change in the osseous structures. Global cardiomegaly and chronic changes as described above. There is no evidence of acute cardiopulmonary disease. Correlate clinically to rule out the possibility of the acute disease superimposed upon chronic change. CTA 04/18: No CT evidence of pulmonary embolism. Moderate cardiomegaly. Right heart failure findings. Possible pulmonary edema versus inflammatory infiltrates in the lung fernandez. No pleural effusion. MICROBIOLOGY: Please see below. ASSESSMENT: Champ Varela 74-year-old male with past medical history of asthma, atrial fibrillation on warfarin, and possible CHF on Lasix, who presented with worsening shortness of breath over the course about 3-4 days and fatigue. PLAN: 1. Acute exacerbation of CHF. Pt does not recall being told he has CHF and states he takes lasix for fluid. He does state he was told to take this twice a day but only takes it once a day. We'll give him a dose of IV Lasix 60 mg tonight and another dose tomorrow morning and monitor I/O to see if he diureses well. 2 L fluid restriction, 2 g sodium restriction diet Ordered echocardiogram to further evaluate. 2. Asthma May be acutely exacerbated with high-pitched wheezing in the upper airways. Continue inhaler therapy, substitute his home Breo inhaler with the hospital available Advair. We'll also start scheduled DuoNeb treatments with additional PRN duonebs. Added mucinex for his cough 3. Atrial fibrillation, rate controlled. Continue home metoprolol and warfarin. Monitor INR daily 4. Chronic pain. Continue home medications as needed 5. History of CAD. Continue home atorvastatin 6. GERD. Continue home omeprazole 7. DVT prophylaxis. On warfarin. Disposition: Admitted to PCU I performed a history and physical examination of the patient and discussed their management with the above documenter. I reviewed the note and agree with the documented findings and plan of care. Vital Signs Vital Signs Date Time Temp Pulse Resp B/P (MAP) Pulse Ox O2 Delivery O2 Flow Rate FiO2 04/18/19 15:30 104 148/79 (102) 91 Room Air 04/18/19 13:45 20 04/18/19 09:43 96.9 Laboratory Data Labs 24H Laboratory Tests 2 04/18/19 10:07: Immature Granulocyte % (Auto) 0.3, White Blood Count 10.2H, Red Blood Count 4.97, Hemoglobin 14.6, Hematocrit 45.1, Mean Corpuscular Volume 90.7, Mean Corpuscular Hemoglobin 29.4, Mean Corpuscular Hemoglobin Concent 32.4, Red Cell Distribution Width 14.9H, Platelet Count 126L, Neutrophils (%) (Auto) 73.9H, Lymphocytes (%) (Auto) 14.2L, Monocytes (%) (Auto) 11.1H, Eosinophils (%) (Auto) 0.1, Basophils (%) (Auto) 0.4, Neutrophils # (Auto) 7.5, Lymphocytes # (Auto) 1.4L, Monocytes # (Auto) 1.1H, Eosinophils # (Auto) 0.0, Basophils # (Auto) 0.0, Nucleated Red Blood Cells % (auto) 0.0, Prothrombin Time 24.4H, Prothromb Time International Ratio 2.22, Anion Gap 7L, Glomerular Filtration Rate > 60.0, Lactic Acid Level 1.4, Calcium Level 8.6L, Aspartate Amino Transf (AST/SGOT) 18, Alanine Aminotransferase (ALT/SGPT) 23, Alkaline Phosphatase 145H, Total Bilirubin 2.5H, Direct Bilirubin 0.8H, Total Creatine Kinase 70, Creatine Kinase MB < 1.0, Creatine Kinase MB Relative Index 1.43, Troponin I < 0.02, IV-Dqo-Z-Type Natriuretic Peptide 797H, Total Protein 7.8, Albumin 3.5, Albumin/Globulin Ratio 0.81L, Thyroid Stimulating Hormone (TSH) 0.813 04/18/19 10:28: Blood Gas Bicarbonate Standard 25.9, Arterial Blood pH 7.438, Arterial Blood Partial Pressure CO2 39.1, Arterial Blood Partial Pressure O2 68.1L, Arterial Blood Total CO2 27.0, Arterial Blood HCO3 25.8, Arterial Blood Base Excess 1.7, Arterial Blood Oxygen Saturation 94.9L CBC/BMP Laboratory Tests 04/18/19 10:07 Red Blood Count 4.97, Mean Corpuscular Volume 90.7, Mean Corpuscular Hemoglobin 29.4, Mean Corpuscular Hemoglobin Concent 32.4, Red Cell Distribution Width 14.9 H, Neutrophils (%) (Auto) 73.9 H, Lymphocytes (%) (Auto) 14.2 L, Monocytes (%) (Auto) 11.1 H, Eosinophils (%) (Auto) 0.1, Basophils (%) (Auto) 0.4, Neutrophils # (Auto) 7.5, Lymphocytes # (Auto) 1.4 L, Monocytes # (Auto) 1.1 H, Eosinophils # (Auto) 0.0, Basophils # (Auto) 0.0 Microbiology Microbiology 04/18/19 Blood Culture, Received Pending 04/18/19 Blood Culture, Received Pending 04/18/19 Gram Stain - Final, Resulted 04/18/19 Sputum Culture, Resulted Pending Home Medications Scheduled Ascorbic Acid (Vitamin C) 500 Mg Tablet, 500 MG PO DAILY Atorvastatin Calcium (Atorvastatin Calcium) 80 Mg Tab, 80 MG PO QHS Cholecalciferol (Vitamin D3) (Vitamin D3) 1,000 Unit Tablet, 1,000 UNIT PO DAILY Fluticasone/Vilanterol (Breo Ellipta 200-25 Mcg INH) 1 Inh Inh, 1 INH INH DAILY Furosemide (Lasix) 40 Mg Tab, 40 MG PO BID TAKES AM/NOON Metoprolol Succinate (Metoprolol Succinate) 100 Mg Tab, 100 MG PO DAILY Multivitamins (Thera M Plus Tablet) 1 Tab Tab, 1 TAB PO DAILY Omeprazole (Omeprazole) 20 Mg Cap, 40 MG PO DAILY Tramadol HCl/Acetaminophen (Tramadol-Acetaminophn 37.5-325) 1 Tab Tab, 1 TAB PO DAILY Vit A/Vit C/Vit E/Zinc/Copper (Preservision Areds Tablet) 1 Tab Tab, 1 TAB PO BID Vits A,C,E/Lutein/Minerals (Ocuvite with Lutein Tablet) 1 Each Tablet, 1 TAB PO BID Warfarin Sodium (Warfarin Sodium) 5 Mg Tab, 5 MG PO 2XW QPM: MON/MON Warfarin Sodium (Warfarin Sodium) 2.5 Mg Tab, 2.5 MG PO 5XW QPM: SUN/MON/WED/TH/SAT Scheduled PRN Acetaminophen (Acetaminophen) 500 Mg Tablet, 1,000 MG PO Q6H PRN for PAIN Albuterol Sulfate (Ventolin Hfa) 18 Gm Hfa.aer.ad, 2 PUFF INH Q4H PRN for SOB/WHEEZING Benzonatate (Tessalon Perle) 100 Mg Capsule, 100 MG PO TID PRN for COUGH Nitroglycerin (Nitrostat) 0.4 Mg Subl, 0.4 MG SL PRN PRN for CHEST PAIN Allergies Coded Allergies: Peanut (Verified Allergy, Unknown, SOB, 04/18/19) simvastatin (Verified Allergy, Unknown, 04/18/19) muscle weakness A-FIB/CHADSVASC A-FIB History Current/History of A-Fib/PAF?: Yes Current PO Anticoag Therapy: Yes LUCILA BARR PGY-1 Apr 18, 2019 17:27 EVE CASTILLO MD Apr 20, 2019 16:14
[2019-04-18 18:54] VITALS: BP 128/72
[2019-04-18] MEDS: ADVAIR HFA 115/21MCG INHALER INH SCH (20:23)
[2019-04-18] MEDS: guaiFENesin ER 600 MG TAB PO SCH (20:35)
[2019-04-18] MEDS: ATORVASTATIN 20 MG TAB PO SCH (20:35)
[2019-04-19] VITALS: BP 132/74
[2019-04-19] MEDS: IPRATROPIUM 0.5MG/ALBUTEROL 2.5MG INH SOL UD 3ML (DUONEB)(J7620) NEB SCH ×4 (00:20→20:00)
[2019-04-19 04:00] VITALS: BP 163/86
[2019-04-19] MEDS ORDERED: FUROSEMIDE 100 MG/10 ML VIAL (J1940) IV ONE (05:00)
[2019-04-19 05:58] LABS: HEMATOCRIT 42.2 % (42.0-52.0); HEMOGLOBIN 13.6 g/dl (13.5-17.5); MEAN CORPUSCULAR HEMOGLOBIN 28.4 pg (27.0-33.0); MEAN CORPUSCULAR HGB CONC 32.2 g/dl (32.0-36.5); MEAN CORPUSCULAR VOLUME 88.1 fl (80.0-96.0); PLATELET COUNT, AUTOMATED 143 10^3/uL (150-450); RED BLOOD COUNT 4.79 10^6/uL (4.30-6.10); WHITE BLOOD COUNT 9.7 10^3/uL (4.0-10.0)
--- NOTE | 2019-04-19 06:00 | ECGEPIP ---
[facility] - ED Test Date: 2019-04-18 Pat Name: FIDENCIO WARNER Department: Room: - Gender: Male [employer]: CHELLE : 1945 Requested By: Maida Cifuentes Order Number: [id number] Reading MD: Bennett Collins Measurements Intervals Crowley Rate: 96 P: WV: 0 QRS: 25 QRSD: 114 T: 35 QT: 360 QTc: 456 Interpretive Statements ATRIAL FIBRILLATION LOW QRS VOLTAGE IN EXTREMITY LEADS INCOMPLETE RIGHT BUNDLE BRANCH BLOCK SIMILAR TO 04/29/15 Electronically Signed on 04-19-2019 5:59:40 EDT by Bennett Collins
[2019-04-19 06:08] LABS: INR 2.39; PROTHROMBIN TIME 25.9 SECONDS (11.8-14.0)
[2019-04-19 06:22] LABS: BLOOD UREA NITROGEN 25 MG/DL (7-18); CALCIUM LEVEL 9.2 MG/DL (8.8-10.2); CARBON DIOXIDE LEVEL 34 MEQ/L (21-32); CHLORIDE LEVEL 98 MEQ/L (98-107); CREATININE FOR GFR 0.91 MG/DL (0.70-1.30); GLOMERULAR FILTRATION RATE > 60.0 (>42); GLUCOSE, FASTING 154 MG/DL (70-100); SODIUM LEVEL 137 MEQ/L (136-145)
[2019-04-19] MEDS: ADVAIR HFA 115/21MCG INHALER INH SCH ×2 (07:53→20:22)
[2019-04-19 08:00] VITALS: BP 140/64
[2019-04-19 08:23] LABS: MAGNESIUM LEVEL 2.5 MG/DL (1.8-2.4)
[2019-04-19] MEDS ORDERED: SLF 3 ML SYR IV PRN (08:30)
[2019-04-19] MEDS: OMEPRAZOLE 20 MG CAP PO SCH (08:41)
[2019-04-19] MEDS: guaiFENesin ER 600 MG TAB PO SCH ×2 (08:41→20:38)
[2019-04-19] MEDS: METOPROLOL SUCC (TopROL XL) 100MG *XL* TAB PO SCH (08:41)
[2019-04-19] MEDS ORDERED: PREVNAR 13 VACCINE SYRINGE (CPT CODE:90670) IM ONE (09:00)
[2019-04-19] MEDS ORDERED: ADVAIR HFA 230/21MCG INHALER INH SCH (09:00)
[2019-04-19] MEDS ORDERED: ULTRACET TAB PO SCH (09:00)
--- NOTE | 2019-04-19 10:24 | IPNPDOC ---
Date Seen The patient was seen on 04/19/19. Progress Note SUBJECTIVE: Patient is a 74-year-old male with past medical history of asthma, atrial fibrillation on warfarin, and possible CHF on Lasix, who presented with worsening shortness of breath over the course about 3-4 days and fatigue. Patient states he is feeling some improvement today. He does notice decreased leg swelling compared to prior to admission. He does state he continues to have some shortness of breath. He also states he is having some wheezing and requests cough drops, which is what he uses at home with good relief. He also states he continues have a cough and is bringing up more mucus and sputum, especially with the nebulizer treatments and Mucinex. He denies fevers, chills, night sweats, chest pain, palpitations, nausea, vomiting, abdominal pain, diarrhea, constipation. OBJECTIVE PHYSICAL EXAMINATION: VITAL SIGNS: Please see below. GENERAL: Alert, comfortable, sitting up in the chair, no acute distress. HEENT: Normocephalic, atraumatic, moist mucous membranes, PERRLA, EOMI. CARDIOVASCULAR: Regular rate rate, irregular rhythm, normal S1 and S2, no murmurs, rubs or gallops. RESPIRATORY: Diffuse expiratory wheezing bilaterally, worse in the upper lobes. Coarse rhonchi and crackles present in the left lower lobe. ABDOMINAL: Soft, nontender, nondistended, bowel sounds present, no masses or hepatosplenomegaly appreciated EXTREMITIES: 1+ pitting edema in the left lower extremity and trace edema in the right lower extremity. Pulses 2 out of 4 in posterior tibial and radial arteries. NEUROLOGICAL: Alert and oriented 3 to person, place and location radial nerves 212 grossly intact. No focal deficits appreciated. PSYCHOLOGICAL: Mood and affect normal LABORATORY DATA, IMAGING STUDIES, MICROBIOLOGY: Please see below. CXR 04/18: Cardiomegaly and chronic fibrotic changes. There is no evidence of acute cardiopulmonary disease. There is no evidence of interstitial edema. When today's PA view of the chest is compared to the latest prior PA view of the chest of 02/20/2019 there is no acute change. There is chronic central pulmonary venous engorgement status quo. There is no change in the osseous structures. Global cardiomegaly and chronic changes as described above. There is no evidence of acute cardiopulmonary disease. Correlate clinically to rule out the possibility of the acute disease superimposed upon chronic change. CTA 04/18: No CT evidence of pulmonary embolism. Moderate cardiomegaly. Right heart failure findings. Possible pulmonary edema versus inflammatory infiltrates in the lung fernandez. No pleural effusion. ASSESSMENT AND PLAN: Champ Varela 74-year-old male with past medical history of asthma, atrial fibrillation on warfarin, and possible CHF on Lasix, who presented with worsening shortness of breath over the course about 3-4 days and fatigue. PROBLEMS: 1. Acute exacerbation of CHF. Pt does not recall being told he has CHF and states he takes lasix for fluid. He does state he was told to take this twice a day but only takes it once a day. On 04/18 pt received IV Lasix 60 mg and a second dose in the morning on 04/19. He appears to have diuresed well, will continue IV lasix 60mg qid 2 L fluid restriction, 2 g sodium restriction diet Ordered echocardiogram to further evaluate, pending. 2. Asthma May be acutely exacerbated with high-pitched wheezing in the upper airways. Continue inhaler therapy, substitute his home Breo inhaler with the hospital available Advair. We'll also start scheduled DuoNeb treatments with additional PRN duonebs. Continue with oral prednisone Added mucinex for his cough and cough drops 3. Atrial fibrillation, rate controlled. Continue home metoprolol and warfarin. Monitor INR daily 4. Chronic pain. Continue home medications as needed 5. History of CAD. Continue home atorvastatin 6. GERD. Continue home omeprazole 7. DVT prophylaxis. On warfarin. Disposition: Admitted to PCU. VS, I&O, 24H, Fishbone Vital Signs/I&O Vital Signs Date Time Temp Pulse Resp B/P (MAP) Pulse Ox O2 Delivery O2 Flow Rate FiO2 04/19/19 08:41 96 163/86 04/19/19 08:00 97.5 19 91 04/18/19 15:30 Room Air I&O- Last 24 Hours up to 6 AM 04/19/19 06:00 Intake Total 600 ml Output Total 1350 ml Balance -750 ml Laboratory Data 24H LABS Laboratory Tests 2 04/18/19 10:28: Blood Gas Bicarbonate Standard 25.9, Arterial Blood pH 7.438, Arterial Blood Partial Pressure CO2 39.1, Arterial Blood Partial Pressure O2 68.1L, Arterial Blood Total CO2 27.0, Arterial Blood HCO3 25.8, Arterial Blood Base Excess 1.7, Arterial Blood Oxygen Saturation 94.9L 04/19/19 05:38: Nucleated Red Blood Cells % (auto) 0.0, Prothrombin Time 25.9H, Prothromb Time International Ratio 2.39, Anion Gap 5L, Glomerular Filtration Rate > 60.0, Blood Urea Nitrogen 25#H, Creatinine 0.91, Sodium Level 137, Potassium Level 4.0, Chloride Level 98, Carbon Dioxide Level 34H, Calcium Level 9.2, Magnesium Level 2.5H CBC/BMP Laboratory Tests 04/19/19 05:38 Red Blood Count 4.79, Mean Corpuscular Volume 88.1, Mean Corpuscular Hemoglobin 28.4, Mean Corpuscular Hemoglobin Concent 32.2, Red Cell Distribution Width 14.7 H, Calcium Level 9.2 Microbiology Microbiology 04/18/19 Blood Culture, Received Pending 04/18/19 Blood Culture, Received Pending 04/18/19 Gram Stain - Final, Resulted 04/18/19 Sputum Culture, Resulted Pending LUCILA BARR PGY-1 Apr 19, 2019 10:24
[2019-04-19] MEDS: CEPACOL LOZENGE PO PRN ×2 (10:57→13:51)
[2019-04-19] MEDS: predniSONE 20 MG TAB PO SCH (10:58)
[2019-04-19 12:00] VITALS: BP 140/84
[2019-04-19] MEDS: SLF 3 ML SYR IV SCH ×2 (14:00→20:39)
[2019-04-19] MEDS: ULTRACET TAB PO PRN ×2 (14:50→19:15)
[2019-04-19] MEDS: FUROSEMIDE 100 MG/10 ML VIAL (J1940) IV SCH ×2 (14:50→20:38)
[2019-04-19 16:00] VITALS: BP 158/82
[2019-04-19] MEDS ORDERED: FUROSEMIDE 40 MG TAB PO SCH (17:00)
[2019-04-19] MEDS ORDERED: WARFARIN SOD 5 MG TAB PO SCH (17:00)
[2019-04-19 19:25] VITALS: BP 140/80
[2019-04-19] MEDS: ATORVASTATIN 20 MG TAB PO SCH (20:38)
[2019-04-20] VITALS: BP 156/79
--- NOTE | 2019-04-20 00:19 | ECHO ---
DATE OF PROCEDURE: 04/18/2019 REFERRING INDIVIDUAL: Dr. Isabela Torres INDICATION: Dyspnea. HEIGHT: 66 inches WEIGHT: 89 kilograms 2D MEASUREMENTS: Aortic annulus: 2.3 cm Aortic root: 3.6 cm Left atrium: 5.1 cm Left ventricle diastole: 4.2 cm Ventricular septum: 1.22 cm Posterior wall: 1.1 cm Inferior vena cava: 1.6 cm with less than 50% respiratory variation. DOPPLER MEASUREMENTS: Trace aortic regurgitation. Aortic valve velocity: 126 cm/s LVOT velocity: 94.6 cm/s Mild mitral regurgitation. Mitral E velocity: 114 cm/s Mitral deceleration time: 173 milliseconds Mild tricuspid regurgitation. Estimated right ventricle systolic pressure: 54-59 mmHg assuming a right atrial pressure of 10-15 mmHg. Very mild pulmonic regurgitation. Pulmonary artery systolic pressure: 41 mmHg by pulmonary acceleration time. DESCRIPTION: Rhythm was atrial fibrillation with controlled ventricular response. This was a moderately technically difficult echocardiogram. No pericardial effusion. This was a 2D, M-mode, color flow Doppler and pulse wave Doppler examination and included mitral annular tissue Doppler. CONCLUSIONS: 1. Suggestive of moderate elevation of pulmonary artery systolic pressure and estimated right ventricle systolic pressure. Normal right ventricle size and systolic function. Moderate right atrial dilation by visual assessment. Inferior vena cava dilatation with reduced respiratory variation, suggestive of elevated central venous pressure (10-15 mmHg). 2. Borderline concentric left ventricle hypertrophy. Normal left ventricle regional wall motion and left ventricular (LV) systolic function. Left ventricular ejection fraction (LVEF) 60% by visual estimate. Partial flattening of ventricular septum showing systole, suggestive of some degree of pressure overload of the right ventricle. 3. Mild aortic valve sclerosis of a 3-cusp aortic valve. Trace aortic regurgitation. 4. Mild mitral regurgitation. Mitral regurgitation with an anteriorly directed jet along the anterior mitral leaflet. Moderately technically difficult visualization of the mitral leaflets. No obvious mitral valve prolapse. Mitral leaflets did not appear myxomatous. 5. Severe left atrial dilatation. 6. Presence of ascites. 7. No pericardial effusion.
[2019-04-20] MEDS: IPRATROPIUM 0.5MG/ALBUTEROL 2.5MG INH SOL UD 3ML (DUONEB)(J7620) NEB SCH ×4 (02:00→20:00)
[2019-04-20 04:00] VITALS: BP 138/86
[2019-04-20] MEDS: CEPACOL LOZENGE PO PRN ×4 (05:40→21:44)
[2019-04-20] MEDS: SLF 3 ML SYR IV SCH ×3 (05:48→21:13)
[2019-04-20] MEDS: FUROSEMIDE 100 MG/10 ML VIAL (J1940) IV SCH ×3 (05:48→21:13)
[2019-04-20 06:00] LABS: HEMATOCRIT 42.8 % (42.0-52.0); HEMOGLOBIN 13.9 g/dl (13.5-17.5); MEAN CORPUSCULAR HEMOGLOBIN 28.6 pg (27.0-33.0); MEAN CORPUSCULAR HGB CONC 32.5 g/dl (32.0-36.5); MEAN CORPUSCULAR VOLUME 88.1 fl (80.0-96.0); PLATELET COUNT, AUTOMATED 160 10^3/uL (150-450); RED BLOOD COUNT 4.86 10^6/uL (4.30-6.10); WHITE BLOOD COUNT 11.3 10^3/uL (4.0-10.0)
[2019-04-20 06:11] LABS: INR 3.27; PROTHROMBIN TIME 33.3 SECONDS (11.8-14.0)
[2019-04-20 06:21] LABS: BLOOD UREA NITROGEN 31 MG/DL (7-18); CALCIUM LEVEL 9.1 MG/DL (8.8-10.2); CARBON DIOXIDE LEVEL 34 MEQ/L (21-32); CHLORIDE LEVEL 97 MEQ/L (98-107); CREATININE FOR GFR 0.93 MG/DL (0.70-1.30); GLOMERULAR FILTRATION RATE > 60.0 (>42); GLUCOSE, FASTING 141 MG/DL (70-100); MAGNESIUM LEVEL 2.3 MG/DL (1.8-2.4); POTASSIUM SERUM 3.7 MEQ/L (3.5-5.1); SODIUM LEVEL 136 MEQ/L (136-145)
[2019-04-20 08:00] VITALS: BP 148/90
[2019-04-20] MEDS: ADVAIR HFA 115/21MCG INHALER INH SCH ×2 (08:31→20:28)
[2019-04-20] MEDS: guaiFENesin ER 600 MG TAB PO SCH ×2 (09:33→21:12)
[2019-04-20] MEDS: METOPROLOL SUCC (TopROL XL) 100MG *XL* TAB PO SCH (09:33)
[2019-04-20] MEDS: predniSONE 20 MG TAB PO SCH (09:34)
[2019-04-20] MEDS: OMEPRAZOLE 20 MG CAP PO SCH (09:34)
[2019-04-20] MEDS: ULTRACET TAB PO PRN ×2 (09:35→18:08)
[2019-04-20 12:00] VITALS: BP 137/77
[2019-04-20] MEDS ORDERED: METOPROLOL TART 12.5 MG PER 1/2 TAB PO SCH (12:00)
--- NOTE | 2019-04-20 13:25 | IPNPDOC ---
Date Seen The patient was seen on 04/20/19. Progress Note SUBJECTIVE: Patient is a 74-year-old male with past medical history of asthma, atrial fibrillation on warfarin, and possible CHF on Lasix, who presented with worsening shortness of breath over the course about 3-4 days and fatigue. Patient was seen and examined today sitting up on the edge of his bed. He states he does feel some improvement of his shortness of breath today but reports he continues to get short of breath doing things around the room. He also has significant orthopnea as well. He states his leg swelling feels stable. He denies fevers, chills, night sweats, chest pain, palpitations, nausea, vomiting, abdominal pain, diarrhea, constipation. OBJECTIVE PHYSICAL EXAMINATION: VITAL SIGNS: Please see below. GENERAL: Alert, comfortable, sitting up in the chair, no acute distress. HEENT: Normocephalic, atraumatic, moist mucous membranes, PERRLA, EOMI. CARDIOVASCULAR: Regular rate rate, irregular rhythm, normal S1 and S2, no murmurs, rubs or gallops. RESPIRATORY: Diffuse expiratory wheezing bilaterally, worse in the upper lobes. Coarse rhonchi and crackles present in the left lower lobe which are improved from yesterday. ABDOMINAL: Soft, nontender, nondistended, bowel sounds present, no masses or hepatosplenomegaly appreciated EXTREMITIES: 1+ pitting edema in the left lower extremity and trace edema in the right lower extremity. Pulses 2 out of 4 in posterior tibial and radial arteries. NEUROLOGICAL: Alert and oriented 3 to person, place and location radial nerves 212 grossly intact. No focal deficits appreciated. PSYCHOLOGICAL: Mood and affect normal LABORATORY DATA, IMAGING STUDIES, MICROBIOLOGY: Please see below. CXR 04/18: Cardiomegaly and chronic fibrotic changes. There is no evidence of acute cardiopulmonary disease. There is no evidence of interstitial edema. When today's PA view of the chest is compared to the latest prior PA view of the chest of 02/20/2019 there is no acute change. There is chronic central pulmonary venous engorgement status quo. There is no change in the osseous structures. Global cardiomegaly and chronic changes as described above. There is no evidence of acute cardiopulmonary disease. Correlate clinically to rule out the possibility of the acute disease superimposed upon chronic change. CTA 04/18: No CT evidence of pulmonary embolism. Moderate cardiomegaly. Right heart failure findings. Possible pulmonary edema versus inflammatory infiltrates in the lung fernandez. No pleural effusion. Echocardiogram 04/18: 1. Suggestive of moderate elevation of pulmonary artery systolic pressure and estimated right ventricle systolic pressure. Normal right ventricle size and systolic function. Moderate right atrial dilation by visual assessment. Inferior vena cava dilatation with reduced respiratory variation, suggestive of elevated central venous pressure (10-15 mmHg). 2. Borderline concentric left ventricle hypertrophy. Normal left ventricle regional wall motion and left ventricular (LV) systolic function. Left vent ricular ejection fraction (LVEF) 60% by visual estimate. Partial flattening of ventricular septum showing systole, suggestive of some degree of pressure overload of the right ventricle. 3. Mild aortic valve sclerosis of a 3-cusp aortic valve. Trace aortic regurgitation. 4. Mild mitral regurgitation. Mitral regurgitation with an anteriorly directed jet along the anterior mitral leaflet. Moderately technically difficult visualization of the mitral leaflets. No obvious mitral valve prolapse. Mitral leaflets did not appear myxomatous. 5. Severe left atrial dilatation. 6. Presence of ascites. 7. No pericardial effusion. ASSESSMENT AND PLAN: Champ Varela 74-year-old male with past medical history of asthma, atrial fibrillation on warfarin, and possible CHF on Lasix, who presented with worsening shortness of breath over the course about 3-4 days and fatigue. PROBLEMS: 1. Acute exacerbation of CHF. Pt does not recall being told he has CHF and states he takes lasix for fluid. He does state he was told to take this twice a day but only takes it once a day. On 04/18 pt received IV Lasix 60 mg and a second dose in the morning on 04/19. He appears to have diuresed well, will continue IV lasix 60mg qid 2 L fluid restriction, 2 g sodium restriction diet Cardiopulmonary rehab 2. Asthma May be acutely exacerbated with high-pitched wheezing in the upper airways. Continue inhaler therapy, substitute his home Breo inhaler with the hospital available Advair. We'll also start scheduled DuoNeb treatments with additional PRN duonebs. Continue with oral prednisone Added mucinex for his cough and cough drops 3. Atrial fibrillation - Not rate controlled today, will titrate up on metoprolol tartrate today and adjust his home metoprolol succinate tomorrow for better control. Continue warfarin. Monitor INR daily. Held dose of warfarin today due to INR of 3.27 4. Chronic pain. Continue home medications as needed 5. History of CAD. Continue home atorvastatin 6. GERD. Continue home omeprazole 7. DVT prophylaxis. On warfarin. Disposition: Admitted to PCU. VS, I&O, 24H, Larrybonfavio Vital Signs/I&O Vital Signs Date Time Temp Pulse Resp B/P (MAP) Pulse Ox O2 Delivery O2 Flow Rate FiO2 04/20/19 09:35 20 04/20/19 09:33 117 148/90 04/20/19 08:00 97.8 88 04/18/19 15:30 Room Air I&O- Last 24 Hours up to 6 AM 04/20/19 05:59 Intake Total 960 ml Output Total 2525 ml Balance -1565 ml Laboratory Data 24H LABS Laboratory Tests 2 04/20/19 05:40: Nucleated Red Blood Cells % (auto) 0.0, Prothrombin Time 33.3H, Prothromb Time International Ratio 3.27, Anion Gap 5L, Glomerular Filtration Rate > 60.0, Blood Urea Nitrogen 31H, Creatinine 0.93, Sodium Level 136, Potassium Level 3.7, Chloride Level 97L, Carbon Dioxide Level 34H, Calcium Level 9.1, Magnesium Level 2.3 CBC/BMP Laboratory Tests 04/20/19 05:40 Red Blood Count 4.86, Mean Corpuscular Volume 88.1, Mean Corpuscular Hemoglobin 28.6, Mean Corpuscular Hemoglobin Concent 32.5, Red Cell Distribution Width 14.9 H, Calcium Level 9.1 Microbiology Microbiology 04/18/19 Blood Culture - Preliminary, Resulted No growth after 24 hours . All specim... 04/18/19 Blood Culture - Preliminary, Resulted No Growth after 48 hours. All Specime... 04/18/19 Gram Stain - Final, Complete 04/18/19 Sputum Culture - Final, Complete Proteus Mirabilis Haemophilus Influenzae LUCILA BARR PGY-1 Apr 20, 2019 11:36
[2019-04-20] MEDS ORDERED: METOPROLOL TART 12.5 MG PER 1/2 TAB PO ONE (14:45)
[2019-04-20 16:00] VITALS: BP 145/86
[2019-04-20] MEDS ORDERED: PILL CUTTER 1 EACH XX PRN (17:45)
[2019-04-20] MEDS: METOPROLOL TART 25 MG TABLET PO SCH ×2 (17:57→23:46)
[2019-04-20] MEDS ORDERED: METOPROLOL TART 25 MG TABLET PO SCH (18:00)
[2019-04-20 20:00] VITALS: BP 128/83
[2019-04-20] MEDS: ATORVASTATIN 20 MG TAB PO SCH (21:12)
[2019-04-21] VITALS (8 sets, daily range): BP systolic 100–155; BP diastolic 56–89
[2019-04-21] MEDS: IPRATROPIUM 0.5MG/ALBUTEROL 2.5MG INH SOL UD 3ML (DUONEB)(J7620) NEB SCH ×6 (02:00→23:18)
[2019-04-21] MEDS: METOPROLOL TART 25 MG TABLET PO SCH ×2 (05:56→18:48)
[2019-04-21] MEDS: FUROSEMIDE 100 MG/10 ML VIAL (J1940) IV SCH (05:56)
[2019-04-21] MEDS: SLF 3 ML SYR IV SCH ×3 (05:57→20:32)
[2019-04-21 06:22] LABS: HEMATOCRIT 47.5 % (42.0-52.0); HEMOGLOBIN 15.1 g/dl (13.5-17.5); MEAN CORPUSCULAR HGB CONC 31.8 g/dl (32.0-36.5); MEAN CORPUSCULAR VOLUME 91.3 fl (80.0-96.0); PLATELET COUNT, AUTOMATED 180 10^3/uL (150-450); WHITE BLOOD COUNT 10.6 10^3/uL (4.0-10.0)
[2019-04-21] MEDS: CEPACOL LOZENGE PO PRN ×2 (06:30→20:32)
[2019-04-21 06:35] LABS: INR 4.73; PROTHROMBIN TIME 44.7 SECONDS (11.8-14.0)
[2019-04-21 06:38] LABS: BLOOD UREA NITROGEN 32 MG/DL (7-18); CARBON DIOXIDE LEVEL 36 MEQ/L (21-32); CHLORIDE LEVEL 92 MEQ/L (98-107); CREATININE FOR GFR 1.01 MG/DL (0.70-1.30); GLOMERULAR FILTRATION RATE > 60.0 (>42); GLUCOSE, FASTING 134 MG/DL (70-100); MAGNESIUM LEVEL 2.5 MG/DL (1.8-2.4); SODIUM LEVEL 136 MEQ/L (136-145)
[2019-04-21] MEDS: ADVAIR HFA 115/21MCG INHALER INH SCH ×2 (08:53→20:12)
[2019-04-21] MEDS: guaiFENesin ER 600 MG TAB PO SCH ×2 (09:00→20:32)
[2019-04-21] MEDS: predniSONE 20 MG TAB PO SCH (09:00)
[2019-04-21] MEDS: OMEPRAZOLE 20 MG CAP PO SCH (09:00)
[2019-04-21] MEDS: CEFDINIR 300 MG CAP (OMNICEF) PO SCH ×2 (12:43→20:32)
--- NOTE | 2019-04-21 12:45 | IPNPDOC ---
Date Seen The patient was seen on 04/21/19. Progress Note SUBJECTIVE: Patient tells me that his breathing is significantly better from when he presented to the hospital however he still does have some shortness of breath and significant cough otherwise patient denies chest pain, nausea, vomiting, fevers, chills OBJECTIVE PHYSICAL EXAMINATION: VITAL SIGNS: Please see below. GENERAL: Pleasant obese elderly man sitting up in bed awake alert oriented speaking in complete sentences no acute distress HEENT: Moist mucous membranes no elevation in CVP appreciated today CARDIOVASCULAR: S1 S2 regular no additional heart sounds appreciated. Not tachycardic RESPIRATORY: Clear to auscultation bilaterally. Scattered end expiratory rhonchi prolonged expiratory phase improved aeration from previous days exam ABDOMINAL: Bowel sounds present abdomen soft and nontender EXTREMITIES: No clubbing cyanosis, trace edema NEUROLOGICAL: Spontaneously moves all 4 extremities cranial 2 through 12 grossly intact no gross focal deficits appreciated PSYCHOLOGICAL: Appropriate LABORATORY DATA, MICROBIOLOGY: Please see below. IMAGING STUDIES: CT angiogram:No CT evidence of pulmonary embolism. Moderate cardiomegaly. Right heart failure findings. Possible pulmonary edema versus inflammatory infiltrates in the lung fernandez. No pleural effusion. Echocardiogram:1. Suggestive of moderate elevation of pulmonary artery systolic pressure and estimated right ventricle systolic pressure. Normal right ventricle size and systolic function. Moderate right atrial dilation by visual assessment. Inferior vena cava dilatation with reduced respiratory variation, suggestive of elevated central venous pressure (10-15 mmHg). 2. Borderline concentric left ventricle hypertrophy. Normal left ventricle regional wall motion and left ventricular (LV) systolic function. Left ventricular ejection fraction (LVEF) 60% by visual estimate. Partial flattening of ventricular septum showing systole, suggestive of some degree of pressure overload of the right ventricle. 3. Mild aortic valve sclerosis of a 3-cusp aortic valve. Trace aortic regurgitation. 4. Mild mitral regurgitation. Mitral regurgitation with an anteriorly directed jet along the anterior mitral leaflet. Moderately technically difficult visualization of the mitral leaflets. No obvious mitral valve prolapse. Mitral leaflets did not appear myxomatous. 5. Severe left atrial dilatation. 6. Presence of ascites. 7. No pericardial effusion. ASSESSMENT AND PLAN: This is a 74-year-old man with dyspnea PROBLEMS: 1. Dyspnea: Likely multifactorial in nature. When he presented he certainly appeared to be in decompensated congestive heart failure, and with diuresis his symptoms have improved. There is likely an element of diastolic dysfunction. In addition to this he has long-standing obstructive sleep apnea and noncompliance with CPAP and his echocardiogram has findings suggestive of cor pulmonale and right-sided heart failure and pulmonary hypertension. He was recently diagnosed with possible asthma is somewhat curious to develop this so late in life he has been on empiric steroids given that his sputum cultures positive I will provide him with by mouth antibiotics. I did discuss the case at length with Dr. Lauren of pulmonary this morning after becoming aware of all the details related to the case he feels that the continued shortness of breath is most likely related to pulmonary hypertension and that prior to further or different etiologies being investigated he must first be compliant with CPAP and see if his symptoms improve with this. 2. Atrial fibrillation: He's had some episodes where he has not been rate controlled and we have been titrating up on this I'll transition him to 75 mg of metoprolol tartrate twice a day he is anticoagulated supratherapeutic INR which we will hold Coumadin. 3. Gastroesophageal reflux disease: Continue with atorvastatin. 4. Coronary artery disease: Patient is on Coumadin and statin beta liang home aspirin as per his application helper. DVT prophylaxis: Coumadin DISPOSITION: Possibly home in the next 24-48 hours with close outpatient pulmonary follow-up. VS, I&O, 24H, Fishbone Vital Signs/I&O Vital Signs Date Time Temp Pulse Resp B/P (MAP) Pulse Ox O2 Delivery O2 Flow Rate FiO2 04/21/19 12:00 98.3 100 18 155/86 (109) 90 2.0 04/20/19 20:28 Nasal Cannula I&O- Last 24 Hours up to 6 AM 04/21/19 05:59 Intake Total 1155 ml Output Total 2175 ml Balance -1020 ml Laboratory Data 24H LABS Laboratory Tests 2 04/21/19 05:50: Nucleated Red Blood Cells % (auto) 0.0, Prothrombin Time 44.7H, Prothromb Time International Ratio 4.73, Anion Gap 8, Glomerular Filtration Rate > 60.0, Blood Urea Nitrogen 32H, Creatinine 1.01, Sodium Level 136, Potassium Level 4.0, Chloride Level 92L, Carbon Dioxide Level 36H, Calcium Level 9.0, Magnesium Level 2.5H CBC/BMP Laboratory Tests 04/21/19 05:50 Red Blood Count 5.20, Mean Corpuscular Volume 91.3, Mean Corpuscular Hemoglobin 29.0, Mean Corpuscular Hemoglobin Concent 31.8 L, Red Cell Distribution Width 14.9 H, Calcium Level 9.0 Microbiology Microbiology 04/18/19 Blood Culture - Preliminary, Resulted No Growth after 48 hours. All Specime... 04/18/19 Blood Culture - Preliminary, Resulted No Growth after 72 hours. All specime... 04/18/19 Gram Stain - Final, Complete 04/18/19 Sputum Culture - Final, Complete Proteus Mirabilis Haemophilus Influenzae EVE CASTILLO MD Apr 21, 2019 12:44
[2019-04-21] MEDS: ULTRACET TAB PO PRN (14:13)
[2019-04-21] MEDS ORDERED: DIGOXIN INJ 0.5 MG/2 ML AMP (J1160) IV STA (14:42)
[2019-04-21] MEDS: FUROSEMIDE 40 MG TAB PO SCH (16:45)
[2019-04-21] MEDS ORDERED: DIGOXIN INJ 0.5 MG/2 ML AMP (J1160) IV ONE (17:00)
[2019-04-21] MEDS ORDERED: METOPROLOL SUCC *XL* 25MG TAB (TopROL *XL*) As Ordered ONE (18:43)
[2019-04-21] MEDS ORDERED: METOPROLOL TART 25 MG TABLET As Ordered ONE (18:45)
[2019-04-21] MEDS: ATORVASTATIN 20 MG TAB PO SCH (20:32)
[2019-04-22] MEDS: CEPACOL LOZENGE PO PRN (02:53)
[2019-04-22 04:00] VITALS: BP 143/80
[2019-04-22] MEDS ORDERED: BENZONATATE 100 MG CAP PO ONE (05:00)
[2019-04-22] MEDS: SLF 3 ML SYR IV SCH (05:09)
[2019-04-22 05:33] LABS: HEMATOCRIT 44.9 % (42.0-52.0); HEMOGLOBIN 14.3 g/dl (13.5-17.5); MEAN CORPUSCULAR HEMOGLOBIN 28.1 pg (27.0-33.0); MEAN CORPUSCULAR HGB CONC 31.8 g/dl (32.0-36.5); MEAN CORPUSCULAR VOLUME 88.4 fl (80.0-96.0); PLATELET COUNT, AUTOMATED 186 10^3/uL (150-450); RED BLOOD COUNT 5.08 10^6/uL (4.30-6.10); WHITE BLOOD COUNT 11.1 10^3/uL (4.0-10.0)
[2019-04-22 05:45] LABS: INR 3.37; PROTHROMBIN TIME 34.1 SECONDS (11.8-14.0)
[2019-04-22 05:54] LABS: BLOOD UREA NITROGEN 38 MG/DL (7-18); CALCIUM LEVEL 9.1 MG/DL (8.8-10.2); CARBON DIOXIDE LEVEL 39 MEQ/L (21-32); CHLORIDE LEVEL 94 MEQ/L (98-107); CREATININE FOR GFR 1.03 MG/DL (0.70-1.30); GLOMERULAR FILTRATION RATE > 60.0 (>42); GLUCOSE, FASTING 137 MG/DL (70-100); MAGNESIUM LEVEL 2.7 MG/DL (1.8-2.4); POTASSIUM SERUM 4.3 MEQ/L (3.5-5.1); SODIUM LEVEL 137 MEQ/L (136-145)
[2019-04-22 08:00] VITALS: BP 147/85
[2019-04-22] MEDS: CEFDINIR 300 MG CAP (OMNICEF) PO SCH (08:06)
[2019-04-22 08:07] VITALS: BP 147/85
[2019-04-22] MEDS: OMEPRAZOLE 20 MG CAP PO SCH (08:07)
[2019-04-22] MEDS: guaiFENesin ER 600 MG TAB PO SCH (08:07)
[2019-04-22] MEDS: METOPROLOL TART 25 MG TABLET PO SCH (08:07)
[2019-04-22] MEDS: FUROSEMIDE 40 MG TAB PO SCH (08:08)
[2019-04-22] MEDS: IPRATROPIUM 0.5MG/ALBUTEROL 2.5MG INH SOL UD 3ML (DUONEB)(J7620) NEB SCH (08:09)
[2019-04-22] MEDS: ADVAIR HFA 115/21MCG INHALER INH SCH (08:09)
[2019-04-22] MEDS ORDERED: METO1TAB7 PO (10:22)
[2019-04-22] MEDS ORDERED: DIGO0.12 PO (10:47)
[2019-04-22 12:00] VITALS: BP 139/76
--- NOTE | 2019-04-22 16:06 | DS.PDOC ---
Discharge Summary General Date of Admission Apr 18, 2019 at 15:03 Date of Discharge 04/22/2019 Primary Care Physician: MIKHAIL DIAS MD [facility] Attending Physician: EVE CASTILLO MD Discharge Summary PROCEDURES PERFORMED DURING STAY: None. ADMITTING DIAGNOSES: 1. Acute exacerbation of CHF. 2. Asthma. 3. Atrial fibrillation. 4. Chronic pain. 5. CAD. 6. GERD DISCHARGE DIAGNOSES: 1. CHF. 2. Asthma. 3. Atrial fibrillation. 4. Chronic pain. 5. CAD. 6. GERD COMPLICATIONS/CHIEF COMPLAINT: Dyspnea. HISTORY OF PRESENT ILLNESS: Champ Varela is a 74-year-old male who presented to the emergency room today with increased shortness of breath over the past few days. He states he did have some sort of lung infection about a month ago which was treated with Levaquin prescribed by his wardrobe consultant. He states he hasn't remember if he felt better after that, but over the past few days he's become increasingly short of breath. 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 He states that after he's been sitting for a while he feels his breathing goes back to normal and he can return to his work. He also notes that he has increased shortness of breath when he lays down flat and that he sometimes wakes up in the middle of the night unable to breathe. He states that 2 days prior to presentation he did feel very fatigued and did not eat much because he was so tired and weak. He states that this has improved somewhat since then. He states over this time he's had a cough as well which is been mostly nonproductive, but in the ED after nebulizer treatment he did cough up some white and yellow sputum. HOSPITAL COURSE: She was admitted and treated for CHF exacerbation with IV Lasix, 2 L fluid restriction, 2 g sodium restriction diet. He did diurese well and noticed some improvement of his symptoms, but did continue to have shortness of breath, light activity such as walking around the room. He was also treated for his asthma which may been acutely exacerbated as well, with prednisone, scheduled DuoNeb treatments, and Mucinex to help him clear the extra mucus. The case was also discussed with his wardrobe consultant, Dr. Lauren, who felt that the patient does need to be compliant with his home CPAP in order to continue to get improvement of her shortness of breath. Patient will follow up with pulmonology in the outpatient setting to obtain a new CPAP device. The patient continued to have slow improvement of his shortness of breath and cough daily. While admitted , the patient did have multiple episodes of tachycardia up to about 120 with his underlying atrial fibrillation. He was titrated up on metoprolol and started on digoxin in order to control his heart rate between 60 and 100. He will be discharged on a higher dose of metoprolol than his home dose, and on digoxin maintenance dosing. He will follow-up for digoxin level lab work 5 days after discharge and this can be further managed by his PCP. On the day of discharge, the patient was found to be stable and safe for discharge. DISCHARGE MEDICATIONS: Please see below. ALLERGIES: Please see below. PHYSICAL EXAMINATION ON DISCHARGE: VITAL SIGNS: Please see below. GENERAL: Alert, comfortable, sitting up in a chair, no acute distress. HEENT: Normocephalic, atraumatic, moist mucous membranes, PERRLA, EOMI. NECK: Supple, No JVD, no lymphadenopathy CARDIOVASCULAR EXAMINATION: Regular rate rate, irregular rhythm, normal S1 and S2, no murmurs, rubs or gallops. RESPIRATORY EXAMINATION: Diffuse expiratory wheezing, rhonchi in the left lower lobe, improved from prior exam ABDOMINAL EXAMINATION: Soft, nontender, nondistended, bowel sounds present, no masses or hepatosplenomegaly appreciated EXTREMITIES: No cyanosis, trace edema bilaterally SKIN: Intact, pink, dry, warm NEUROLOGICAL EXAMINATION: Alert and oriented 3 to person, place and location radial nerves 212 grossly intact. No focal deficits appreciated. PSYCHIATRIC EXAMINATION: Mood and affect normal LABORATORY DATA: Please see below. IMAGING: CT angiogram:No CT evidence of pulmonary embolism. Moderate cardiomegaly. Right heart failure findings. Possible pulmonary edema versus inflammatory infiltrates in the lung fernandez. No pleural effusion. Echocardiogram:1. Suggestive of moderate elevation of pulmonary artery systolic pressure and estimated right ventricle systolic pressure. Normal right ventricle size and systolic function. Moderate right atrial dilation by visual assessment. Inferior vena cava dilatation with reduced respiratory variation, suggestive of elevated central venous pressure (10-15 mmHg). 2. Borderline concentric left ventricle hypertrophy. Normal left ventricle regional wall motion and left ventricular (LV) systolic function. Left ventricular ejection fraction (LVEF) 60% by visual estimate. Partial flattening of ventricular septum showing systole, suggestive of some degree of pressure overload of the right ventricle. 3. Mild aortic valve sclerosis of a 3-cusp aortic valve. Trace aortic regu rgitation. 4. Mild mitral regurgitation. Mitral regurgitation with an anteriorly directed jet along the anterior mitral leaflet. Moderately technically difficult visualization of the mitral leaflets. No obvious mitral valve prolapse. Mitral leaflets did not appear myxomatous. 5. Severe left atrial dilatation. 6. Presence of ascites. 7. No pericardial effusion. PROGNOSIS: Good ACTIVITY: As tolerated. DIET: As tolerated DISCHARGE PLAN:. Home DISPOSITION: Home, Self-Care. DISCHARGE INSTRUCTIONS: 1. Follow up with your PCP in 7-10 days. 2. Follow up with wardrobe consultant within the next week to discuss new CPAP. 3. We have started you on a new medication called digoxin. Please take as directed and complete your lab work on Monday to check your digoxin level. 4. We have made adjustments to your metoprolol succinate medication. Please pickling solution maker the new prescription for this and take as directed. 5. Continue with all of your other home medications as prescribed. 6. If your symptoms return or your condition worsens, call your PCP or return to the emergency room for further evaluation. ITEMS TO FOLLOWUP ON ON OUTPATIENT: 1. CPAP use, pt reports he needs a new device and would prefer one that goes over the nose only. 2. CHF 3. Asthma control 4. Digoxin management - digoxin level to be checked 04/26 DISCHARGE CONDITION: Stable TIME SPENT ON DISCHARGE: Greater than 35 minutes. Vital Signs/I&Os Vital Signs Date Time Temp Pulse Resp B/P (MAP) Pulse Ox O2 Delivery O2 Flow Rate FiO2 04/22/19 12:00 98.0 70 18 139/76 (97) 90 04/22/19 08:40 2.0 04/20/19 20:28 Nasal Cannula I&O- Last 24 Hours up to 6 AM 04/22/19 06:00 Intake Total 1250 ml Output Total 1275 ml Balance -25 ml Laboratory Data Labs 24H Laboratory Tests 2 04/22/19 05:08: Nucleated Red Blood Cells % (auto) 0.0, Prothrombin Time 34.1H, Prothromb Time International Ratio 3.37, Anion Gap 4L, Glomerular Filtration Rate > 60.0, Blood Urea Nitrogen 38H, Creatinine 1.03, Sodium Level 137, Potassium Level 4.3, Chloride Level 94L, Carbon Dioxide Level 39H, Calcium Level 9.1, Magnesium Level 2.7H CBC/BMP Laboratory Tests 04/22/19 05:08 Red Blood Count 5.08, Mean Corpuscular Volume 88.4, Mean Corpuscular Hemoglobin 28.1, Mean Corpuscular Hemoglobin Concent 31.8 L, Red Cell Distribution Width 14.6 H, Calcium Level 9.1 Microbiology Microbiology 04/18/19 Blood Culture - Preliminary, Resulted No Growth after 72 hours. All specime... 04/18/19 Blood Culture - Preliminary, Resulted No Growth after 72 hours. All specime... 04/18/19 Gram Stain - Final, Complete 04/18/19 Sputum Culture - Final, Complete Proteus Mirabilis Haemophilus Influenzae Discharge Medications Scheduled Ascorbic Acid (Vitamin C) 500 Mg Tablet, 500 MG PO DAILY, (Reported) Atorvastatin Calcium (Atorvastatin Calcium) 80 Mg Tab, 80 MG PO QHS, (Reported) Cholecalciferol (Vitamin D3) (Vitamin D3) 1,000 Unit Tablet, 1,000 UNIT PO DAILY, (Reported) Digoxin (Digoxin) 125 Mcg Tablet, 125 MCG PO DAILY Fluticasone/Vilanterol (Breo Ellipta 200-25 Mcg INH) 1 Inh Inh, 1 INH INH DAILY, (Reported) Furosemide (Lasix) 40 Mg Tab, 40 MG PO BID, (Reported) TAKES AM/NOON Metoprolol Succinate (Metoprolol Succinate) 50 Mg Tab.er.24h, 75 MG PO BID Multivitamins (Thera M Plus Tablet) 1 Tab Tab, 1 TAB PO DAILY, (Reported) Omeprazole (Omeprazole) 20 Mg Cap, 40 MG PO DAILY, (Reported) Tramadol HCl/Acetaminophen (Tramadol-Acetaminophn 37.5-325) 1 Tab Tab, 1 TAB PO DAILY, (Reported) Vit A/Vit C/Vit E/Zinc/Copper (Preservision Areds Tablet) 1 Tab Tab, 1 TAB PO BID, (Reported) Vits A,C,E/Lutein/Minerals (Ocuvite with Lutein Tablet) 1 Each Tablet, 1 TAB PO BID, (Reported) Warfarin Sodium (Warfarin Sodium) 5 Mg Tab, 5 MG PO 2XW, (Reported) QPM: TUE/FRI Warfarin Sodium (Warfarin Sodium) 2.5 Mg Tab, 2.5 MG PO 5XW, (Reported) QPM: SUN/MON/WED/TH/SAT Scheduled PRN Acetaminophen (Acetaminophen) 500 Mg Tablet, 1,000 MG PO Q6H PRN for PAIN, (Reported) Albuterol Sulfate (Ventolin Hfa) 18 Gm Hfa.aer.ad, 2 PUFF INH Q4H PRN for SOB/WHEEZING, (Reported) Benzonatate (Tessalon Perle) 100 Mg Capsule, 100 MG PO TID PRN for COUGH, (Reported) Nitroglycerin (Nitrostat) 0.4 Mg Subl, 0.4 MG SL PRN PRN for CHEST PAIN, (Reported) Allergies Coded Allergies: Peanut (Verified Allergy, Unknown, SOB, 04/18/19) simvastatin (Verified Allergy, Unknown, 04/18/19) muscle weakness LUCILA BARR PGY-1 Apr 22, 2019 16:06
== END 2019-04-22 13:27 | disposition home or self-care (01) | DRG 292 ==
LOC: M ED 09:42 → M ED INP 15:03 → M PCU 15:03
PROVIDERS: ADMIT Internal Medicine; ATTEND Internal Medicine
DX: I50.33 Acute on chronic diastolic (congestive) heart failure (principal); J45.901 Unspecified asthma with (acute) exacerbation; I48.91 Unspecified atrial fibrillation; I25.10 Atherosclerotic heart disease of native coronary artery without angina pectoris; G89.29 Other chronic pain; I50.810 Right heart failure, unspecified; G47.33 Obstructive sleep apnea (adult) (pediatric); I27.29 Other secondary pulmonary hypertension; K21.9 Gastro-esophageal reflux disease without esophagitis; Z95.1 Presence of aortocoronary bypass graft; Z98.49 Cataract extraction status, unspecified eye; Z79.01 Long term (current) use of anticoagulants; Z79.891 Long term (current) use of opiate analgesic; Z79.899 Other long term (current) drug therapy; Z88.8 Allergy status to other drugs, medicaments and biological substances; Z91.010 Allergy to peanuts; Z91.19 Patient's noncompliance with other medical treatment and regimen

== ENCOUNTER → 2019-05-20 | Outpatient (CLI) | payer MEDICARE ==
[~2019-05-20] MED LIST changes: +ACET-683 PO; +D-10TAB3 PO; +DIGO0.12 PO; +METO1TAB7 PO; +OCUVTAB PO; +TESS100C PO; +VENTAER INH; +VITA-158 PO; +VITAMIN C PO; +[UNRECOGNIZED DRUG - OTHER] PO
[2019-05-20 13:35] LABS: INR 2.7; PROTHROMBIN TIME 28.5 SECONDS (11.8-14.0)
== END ==
LOC: M LAB 12:27
PROVIDERS: ATTEND Physician Assistant
DX: I48.2 Chronic atrial fibrillation (principal)

== ENCOUNTER → 2019-06-04 | Outpatient (CLI) | payer MEDICARE ==
--- NOTE | 2019-06-06 16:20 | SLEEPCENT ---
DATE OF PROCEDURE: 06/04/2019 ORDERED BY: Blanca Eubanks Nocturnal polysomnography was performed for the titration of pressure therapy in this patient with a prior history of obstructive sleep apnea syndrome. For testing a RespirTowerMetriXs Bianca View full face mask of large size was used, initial pressure of inspiratory 8 over expiratory 4 was applied to the circuit and the lights were extinguished. 7 hours and 27 minutes of data were reviewed. There were 293 minutes of sleep identified. Sleep latency was normal at 43 minutes. Rapid eye movement (REM) latency was short at 60.5 minutes. Sleep architecture improved with optimal pressure therapy. Overall sleep efficiency was 66.4%. The patient's electrocardiogram showed atrial fibrillation with a controlled ventricular response, rate of 60 on average. EEG showed reasonably normal waveforms for awake and sleep. Persistence of respiratory events prompted increases in bilevel pressure. Optimal sleep was seen on a bilevel pressure of 11 inspiratory over 7 expiratory. Some mild hypopneic respiratory patterning was seen thereafter but saturations remained acceptable. Activity was also seen in the limb EMG leads. The limb movement arousal index was only 4.5. IMPRESSION: Obstructive sleep apnea syndrome (G47.33). RECOMMENDATIONS: Nightly use of bilevel pressure therapy inspiratory 11 over expiratory 7.
== END ==
LOC: M SLEEP 19:57
PROVIDERS: ATTEND Internal Medicine Pulmonary Disease
DX: G47.33 Obstructive sleep apnea (adult) (pediatric) (principal)

== ENCOUNTER → 2019-06-19 | Outpatient (CLI) | payer MEDICARE ==
[2019-06-19 16:05] LABS: INR 2.59; PROTHROMBIN TIME 27.6 SECONDS (11.8-14.0)
== END ==
LOC: M LAB 15:29
PROVIDERS: ATTEND Physician Assistant
DX: I48.20 Chronic atrial fibrillation, unspecified (principal); Z79.01 Long term (current) use of anticoagulants

== ENCOUNTER → 2019-08-05 | Outpatient (CLI) | payer MEDICARE ==
[2019-08-05 15:06] LABS: MEAN CORPUSCULAR HEMOGLOBIN 28.7 pg (27.0-33.0); MEAN CORPUSCULAR HGB CONC 31.9 g/dl (32.0-36.5); PLATELET COUNT, AUTOMATED 134 10^3/uL (150-450); RED BLOOD COUNT 5.22 10^6/uL (4.30-6.10); WHITE BLOOD COUNT 7.9 10^3/uL (4.0-10.0)
[2019-08-05 15:31] LABS: ALBUMIN 3.8 GM/DL (3.2-5.2); ALT/SGPT 40 U/L (12-78); BILIRUBIN,TOTAL 1.4 MG/DL (0.2-1.0); BLOOD UREA NITROGEN 19 MG/DL (7-18); CALCIUM LEVEL 9.9 MG/DL (8.8-10.2); CARBON DIOXIDE LEVEL 34 MEQ/L (21-32); CHLORIDE LEVEL 98 MEQ/L (98-107); CHOLESTEROL LEVEL 129 MG/DL (<200); CHOLESTEROL RISK RATIO 2.687 (<5); CREATININE FOR GFR 1.01 MG/DL (0.70-1.30); GLOMERULAR FILTRATION RATE > 60.0 (>42); GLUCOSE, FASTING 108 MG/DL (70-100); HDL CHOLESTEROL 48 MG/DL (>40); LDL CHOLESTEROL 54 MG/DL (<100); MAGNESIUM LEVEL 2.2 MG/DL (1.8-2.4); NON-HDL-C 81 MG/DL; POTASSIUM SERUM 3.7 MEQ/L (3.5-5.1); SODIUM LEVEL 140 MEQ/L (136-145); TOTAL PROTEIN 8.2 GM/DL (6.4-8.2); TRIGLYCERIDES LEVEL 136 MG/DL (<150)
== END ==
LOC: M LAB 14:29
PROVIDERS: ATTEND Physician Assistant
DX: E78.00 Pure hypercholesterolemia, unspecified (principal); I50.32 Chronic diastolic (congestive) heart failure; I48.20 Chronic atrial fibrillation, unspecified

== ENCOUNTER → 2019-08-15 | Outpatient (CLI) | payer MEDICARE ==
[~2019-08-15] MED LIST changes: -DIGO0.12 PO; +DIGO0.123 PO; +OMEP-172 PO; -OMEP20CA4 PO
[2019-08-15 16:05] LABS: INR 3.49; PROTHROMBIN TIME 35.1 SECONDS (11.8-14.0)
== END ==
LOC: M LAB 15:29
PROVIDERS: ATTEND Physician Assistant
DX: I48.20 Chronic atrial fibrillation, unspecified (principal)

== ENCOUNTER → 2019-09-06 | Outpatient (CLI) | payer MEDICARE ==
[2019-09-06 14:54] LABS: INR 2.05; PROTHROMBIN TIME 22.9 SECONDS (11.8-14.0)
== END ==
LOC: M LAB 14:20
PROVIDERS: ATTEND Physician Assistant
DX: I48.21 Permanent atrial fibrillation (principal)

== ENCOUNTER → 2019-10-08 | Outpatient (CLI) | payer MEDICARE ==
[~2019-10-08] MED LIST changes: -OMEP-172 PO; +OMEP1CAP73 PO
[2019-10-08 16:34] LABS: INR 2.14; PROTHROMBIN TIME 23.7 SECONDS (11.8-14.0)
== END ==
LOC: M LAB 15:23
PROVIDERS: ATTEND Physician Assistant
DX: I48.21 Permanent atrial fibrillation (principal)

== ENCOUNTER → 2019-11-04 | Outpatient (CLI) | payer MEDICARE ==
[2019-11-04 16:37] LABS: INR 2.07; PROTHROMBIN TIME 23.1 SECONDS (11.8-14.0)
[2019-11-04 16:41] LABS: BLOOD UREA NITROGEN 19 MG/DL (7-18); CARBON DIOXIDE LEVEL 33 MEQ/L (21-32); CHLORIDE LEVEL 100 MEQ/L (98-107); CREATININE FOR GFR 0.96 MG/DL (0.70-1.30); GLOMERULAR FILTRATION RATE > 60.0 (>42); GLUCOSE, FASTING 102 MG/DL (70-100); MAGNESIUM LEVEL 2.2 MG/DL (1.8-2.4); POTASSIUM SERUM 3.5 MEQ/L (3.5-5.1); SODIUM LEVEL 137 MEQ/L (136-145)
== END ==
LOC: M LAB 15:33
PROVIDERS: ATTEND Physician Assistant
DX: I48.21 Permanent atrial fibrillation (principal); I50.32 Chronic diastolic (congestive) heart failure

== ENCOUNTER → 2019-12-03 | Outpatient (CLI) | payer MEDICARE ==
[2019-12-03 16:11] LABS: INR 1.86; PROTHROMBIN TIME 21.2 SECONDS (11.8-14.0)
== END ==
LOC: M LAB 15:33
PROVIDERS: ATTEND Physician Assistant
DX: I48.21 Permanent atrial fibrillation (principal)

== ENCOUNTER → 2019-12-30 | Outpatient (CLI) | payer MEDICARE ==
[2019-12-30 15:55] LABS: INR 2.24; PROTHROMBIN TIME 24.6 SECONDS (11.8-14.0)
== END ==
LOC: M LAB 15:12
PROVIDERS: ATTEND Physician Assistant
DX: I48.21 Permanent atrial fibrillation (principal)

== ENCOUNTER → 2020-01-27 | Outpatient (CLI) | payer MEDICARE ==
[2020-01-27 15:31] LABS: INR 1.69; PROTHROMBIN TIME 19.6 SECONDS (11.8-14.0)
== END ==
LOC: M LAB 14:59
PROVIDERS: ATTEND Physician Assistant
DX: I48.20 Chronic atrial fibrillation, unspecified (principal)

== ENCOUNTER → 2020-02-03 | Outpatient (CLI) | payer MEDICARE ==
[2020-02-03 13:33] LABS: HEMATOCRIT 47.3 % (42.0-52.0); MEAN CORPUSCULAR HEMOGLOBIN 28.5 pg (27.0-33.0); MEAN CORPUSCULAR HGB CONC 31.7 g/dl (32.0-36.5); MEAN CORPUSCULAR VOLUME 89.8 fl (80.0-96.0); PLATELET COUNT, AUTOMATED 121 10^3/uL (150-450); RED BLOOD COUNT 5.27 10^6/uL (4.30-6.10); WHITE BLOOD COUNT 6.3 10^3/uL (4.0-10.0)
[2020-02-03 14:32] LABS: BLOOD UREA NITROGEN 14 MG/DL (7-18); CALCIUM LEVEL 8.7 MG/DL (8.8-10.2); CARBON DIOXIDE LEVEL 31 MEQ/L (21-32); CHLORIDE LEVEL 103 MEQ/L (98-107); CREATININE FOR GFR 0.96 MG/DL (0.70-1.30); GLOMERULAR FILTRATION RATE > 60.0 (>42); GLUCOSE, FASTING 111 MG/DL (70-100); MAGNESIUM LEVEL 2.3 MG/DL (1.8-2.4); POTASSIUM SERUM 4.1 MEQ/L (3.5-5.1); SODIUM LEVEL 140 MEQ/L (136-145)
== END ==
LOC: M LAB 13:01
PROVIDERS: ATTEND Physician Assistant
DX: I50.32 Chronic diastolic (congestive) heart failure (principal); I48.21 Permanent atrial fibrillation

== ENCOUNTER → 2020-02-03 | Outpatient (CLI) | payer MEDICARE ==
[2020-02-03 13:38] LABS: INR 2.96; PROTHROMBIN TIME 30.7 SECONDS (11.8-14.0)
== END ==
LOC: M LAB 13:04
PROVIDERS: ATTEND Physician Assistant
DX: I48.20 Chronic atrial fibrillation, unspecified (principal)

== ENCOUNTER → 2020-03-06 | Outpatient (CLI) | payer MEDICARE ==
[2020-03-06 15:24] LABS: INR 3.02; PROTHROMBIN TIME 31.2 SECONDS (11.8-14.0)
== END ==
LOC: M LAB 14:52
PROVIDERS: ATTEND Physician Assistant
DX: I48.21 Permanent atrial fibrillation (principal)

== ENCOUNTER → 2020-03-31 | Outpatient (CLI) | payer MEDICARE ==
[2020-04-27 20:21] LABS: INR 2.08; PROTHROMBIN TIME 23.9 SECONDS (11.8-14.0)
== END ==
LOC: M LAB 15:33
PROVIDERS: ATTEND Physician Assistant
DX: I48.20 Chronic atrial fibrillation, unspecified (principal)

== ENCOUNTER → 2020-05-01 | Outpatient (CLI) | payer MEDICARE ==
[2020-05-01 14:16] LABS: INR 2.62; PROTHROMBIN TIME 28.6 SECONDS (11.8-14.0)
== END ==
LOC: M LAB 13:26
PROVIDERS: ATTEND Physician Assistant
DX: I48.20 Chronic atrial fibrillation, unspecified (principal)

== ENCOUNTER → 2020-05-11 | Outpatient (CLI) | payer MEDICARE ==
[2020-05-11 16:38] LABS: BLOOD UREA NITROGEN 17 MG/DL (7-18); CALCIUM LEVEL 8.9 MG/DL (8.8-10.2); CARBON DIOXIDE LEVEL 35 MEQ/L (21-32); CHLORIDE LEVEL 101 MEQ/L (98-107); CREATININE FOR GFR 0.98 MG/DL (0.70-1.30); GLOMERULAR FILTRATION RATE > 60.0 (>42); GLUCOSE, FASTING 95 MG/DL (70-100); MAGNESIUM LEVEL 2.4 MG/DL (1.8-2.4); POTASSIUM SERUM 3.8 MEQ/L (3.5-5.1); SODIUM LEVEL 138 MEQ/L (136-145)
== END ==
LOC: M LAB 15:39
PROVIDERS: ATTEND Physician Assistant
DX: I48.21 Permanent atrial fibrillation (principal); I50.32 Chronic diastolic (congestive) heart failure

== ENCOUNTER → 2020-06-02 | Outpatient (CLI) | payer MEDICARE ==
[2020-06-02 17:34] LABS: INR 2.14; PROTHROMBIN TIME 24.4 SECONDS (12.5-14.3)
== END ==
LOC: M LAB 15:45
PROVIDERS: ATTEND Physician Assistant
DX: I48.20 Chronic atrial fibrillation, unspecified (principal)

== ENCOUNTER → 2020-07-01 | Outpatient (CLI) | payer MEDICARE ==
[2020-07-01 16:01] LABS: INR 2.3; PROTHROMBIN TIME 25.8 SECONDS (12.5-14.3)
== END ==
LOC: M LAB 15:10
PROVIDERS: ATTEND Physician Assistant
DX: I48.21 Permanent atrial fibrillation (principal)

== ENCOUNTER → 2020-08-19 | Outpatient (CLI) | payer MEDICARE ==
[2020-08-19 12:33] LABS: INR 2.1
== END ==
LOC: M LAB 11:20
PROVIDERS: ATTEND Physician Assistant
DX: I48.21 Permanent atrial fibrillation (principal)

== ENCOUNTER → 2020-09-02 | Outpatient (CLI) | payer MEDICARE ==
[2020-09-02 15:01] LABS: HEMATOCRIT 46.9 % (42.0-52.0); HEMOGLOBIN 14.5 g/dl (13.5-17.5); MEAN CORPUSCULAR HEMOGLOBIN 28.8 pg (27.0-33.0); MEAN CORPUSCULAR HGB CONC 30.9 g/dl (32.0-36.5); MEAN CORPUSCULAR VOLUME 93.2 fl (80.0-96.0); PLATELET COUNT, AUTOMATED 121 10^3/uL (150-450); RED BLOOD COUNT 5.03 10^6/uL (4.30-6.10); WHITE BLOOD COUNT 7.2 10^3/uL (4.0-10.0)
[2020-09-02 15:23] LABS: BLOOD UREA NITROGEN 17 MG/DL (7-18); CALCIUM LEVEL 9.1 MG/DL (8.8-10.2); CARBON DIOXIDE LEVEL 35 MEQ/L (21-32); CHLORIDE LEVEL 101 MEQ/L (98-107); CREATININE FOR GFR 0.97 MG/DL (0.70-1.30); GLOMERULAR FILTRATION RATE > 60.0 (>42); GLUCOSE, FASTING 111 MG/DL (70-100); MAGNESIUM LEVEL 2.4 MG/DL (1.8-2.4); POTASSIUM SERUM 3.8 MEQ/L (3.5-5.1); SODIUM LEVEL 140 MEQ/L (136-145)
== END ==
LOC: M LAB 13:56
PROVIDERS: ATTEND Physician Assistant
DX: I50.32 Chronic diastolic (congestive) heart failure (principal); I48.21 Permanent atrial fibrillation; I48.20 Chronic atrial fibrillation, unspecified

== ENCOUNTER → 2020-09-02 | Outpatient (CLI) | payer MEDICARE ==
[2020-09-02 15:14] LABS: INR 2.61; PROTHROMBIN TIME 28.5 SECONDS (12.5-14.3)
== END ==
LOC: M LAB 13:52
PROVIDERS: ATTEND Physician Assistant
DX: I48.20 Chronic atrial fibrillation, unspecified (principal)

== ENCOUNTER → 2020-10-01 | Outpatient (CLI) | payer MEDICARE ==
[2020-10-01 15:51] LABS: INR 1.98; PROTHROMBIN TIME 22.9 SECONDS (12.5-14.3)
== END ==
LOC: M LAB 15:02
PROVIDERS: ATTEND Physician Assistant
DX: I48.20 Chronic atrial fibrillation, unspecified (principal); Z79.01 Long term (current) use of anticoagulants

== ENCOUNTER → 2020-11-02 | Outpatient (CLI) | payer MEDICARE ==
[2020-11-02 16:21] LABS: INR 1.88
== END ==
LOC: M LAB 15:45
PROVIDERS: ATTEND Physician Assistant
DX: I48.20 Chronic atrial fibrillation, unspecified (principal)

== ENCOUNTER → 2020-12-09 | Outpatient (CLI) | payer MEDICARE ==
[2020-12-09 13:33] LABS: INR 2.51; PROTHROMBIN TIME 27.7 SECONDS (12.5-14.3)
[2020-12-09 14:04] LABS: BLOOD UREA NITROGEN 17 MG/DL (7-18); CALCIUM LEVEL 9.3 MG/DL (8.8-10.2); CARBON DIOXIDE LEVEL 32 MEQ/L (21-32); CHLORIDE LEVEL 100 MEQ/L (98-107); GLOMERULAR FILTRATION RATE > 60.0 (>42); GLUCOSE, FASTING 97 MG/DL (70-100); SODIUM LEVEL 139 MEQ/L (136-145)
== END ==
LOC: M LAB 12:11
PROVIDERS: ATTEND Physician Assistant
DX: I50.32 Chronic diastolic (congestive) heart failure (principal); I48.21 Permanent atrial fibrillation; Z79.01 Long term (current) use of anticoagulants

== ENCOUNTER → 2021-01-06 | Outpatient (CLI) | payer MEDICARE ==
[2021-01-06 15:47] LABS: INR 3.41; PROTHROMBIN TIME 35.2 SECONDS (12.5-14.3)
== END ==
LOC: M LAB 15:02
PROVIDERS: ATTEND Physician Assistant
DX: I48.20 Chronic atrial fibrillation, unspecified (principal)

== ENCOUNTER → 2021-01-21 | Outpatient (CLI) | payer MEDICARE ==
[2021-01-21 16:05] LABS: INR 3.03; PROTHROMBIN TIME 32.1 SECONDS (12.5-14.3)
== END ==
LOC: M LAB 15:22
PROVIDERS: ATTEND Physician Assistant
DX: I48.20 Chronic atrial fibrillation, unspecified (principal)

== ENCOUNTER → 2021-02-16 | Outpatient (CLI) | payer MEDICARE ==
[2021-02-16 16:56] LABS: INR 1.93; PROTHROMBIN TIME 22.5 SECONDS (12.5-14.3)
== END ==
LOC: M LAB 15:44
PROVIDERS: ATTEND Physician Assistant
DX: I48.21 Permanent atrial fibrillation (principal); Z79.01 Long term (current) use of anticoagulants

== ENCOUNTER → 2021-03-03 | Outpatient (CLI) | payer MEDICARE ==
[2021-03-03 16:32] LABS: INR 1.68; PROTHROMBIN TIME 20.2 SECONDS (12.5-14.3)
== END ==
LOC: M LAB 15:55
PROVIDERS: ATTEND Physician Assistant
DX: I48.21 Permanent atrial fibrillation (principal); Z79.01 Long term (current) use of anticoagulants

== ENCOUNTER → 2021-03-09 | Outpatient (CLI) | payer MEDICARE ==
[2021-03-09 13:43] LABS: HEMATOCRIT 45.6 % (42.0-52.0); HEMOGLOBIN 14.4 g/dl (13.5-17.5); MEAN CORPUSCULAR HEMOGLOBIN 29.2 pg (27.0-33.0); MEAN CORPUSCULAR HGB CONC 31.6 g/dl (32.0-36.5); MEAN CORPUSCULAR VOLUME 92.5 fl (80.0-96.0); PLATELET COUNT, AUTOMATED 110 10^3/uL (150-450); RED BLOOD COUNT 4.93 10^6/uL (4.30-6.10)
[2021-03-09 14:07] LABS: ALBUMIN 3.5 GM/DL (3.2-5.2); ALT/SGPT 30 U/L (12-78); BILIRUBIN,TOTAL 1.3 MG/DL (0.2-1.0); BLOOD UREA NITROGEN 16 MG/DL (7-18); CARBON DIOXIDE LEVEL 32 MEQ/L (21-32); CHLORIDE LEVEL 102 MEQ/L (98-107); CHOLESTEROL LEVEL 112 MG/DL (<200); CHOLESTEROL RISK RATIO 2.666 (<5); CREATININE FOR GFR 0.78 MG/DL (0.70-1.30); GLOMERULAR FILTRATION RATE > 60.0 (>42); GLUCOSE, FASTING 107 MG/DL (70-100); HDL CHOLESTEROL 42 MG/DL (>40); LDL CHOLESTEROL 53 MG/DL (<100); MAGNESIUM LEVEL 2.3 MG/DL (1.8-2.4); NON-HDL-C 70 MG/DL; POTASSIUM SERUM 3.6 MEQ/L (3.5-5.1); SODIUM LEVEL 139 MEQ/L (136-145); TOTAL PROTEIN 7.5 GM/DL (6.4-8.2); TRIGLYCERIDES LEVEL 84 MG/DL (<150)
== END ==
LOC: M LAB 11:12
PROVIDERS: ATTEND Physician Assistant
DX: I50.32 Chronic diastolic (congestive) heart failure (principal); I48.21 Permanent atrial fibrillation; E78.00 Pure hypercholesterolemia, unspecified; I25.10 Atherosclerotic heart disease of native coronary artery without angina pectoris

== ENCOUNTER → 2021-03-22 | Outpatient (CLI) | payer MEDICARE ==
[2021-03-22 16:39] LABS: INR 2.11; PROTHROMBIN TIME 24.1 SECONDS (12.5-14.3)
== END ==
LOC: M LAB 15:15
PROVIDERS: ATTEND Physician Assistant
DX: I48.21 Permanent atrial fibrillation (principal); Z79.01 Long term (current) use of anticoagulants

== ENCOUNTER → 2021-04-21 | Outpatient (CLI) | payer MEDICARE ==
[2021-04-21 15:05] LABS: INR 2.64; PROTHROMBIN TIME 28.5 SECONDS (12.7-14.5)
== END ==
LOC: M LAB 13:04
PROVIDERS: ATTEND Physician Assistant
DX: I48.21 Permanent atrial fibrillation (principal); Z79.01 Long term (current) use of anticoagulants

== ENCOUNTER → 2021-05-24 | Outpatient (CLI) | payer MEDICARE ==
[2021-05-24 13:45] LABS: INR 2.67; PROTHROMBIN TIME 28.8 SECONDS (12.7-14.5)
== END ==
LOC: M LAB 12:32
PROVIDERS: ATTEND Physician Assistant
DX: I48.91 Unspecified atrial fibrillation (principal); Z79.01 Long term (current) use of anticoagulants

== ENCOUNTER → 2021-06-07 | Outpatient (CLI) | payer MEDICARE ==
[2021-06-07 16:56] LABS: BLOOD UREA NITROGEN 15 MG/DL (7-18); CALCIUM LEVEL 8.9 MG/DL (8.8-10.2); CARBON DIOXIDE LEVEL 34 MEQ/L (21-32); CHLORIDE LEVEL 99 MEQ/L (98-107); CREATININE FOR GFR 0.93 MG/DL (0.70-1.30); GLOMERULAR FILTRATION RATE > 60.0 (>42); GLUCOSE, FASTING 108 MG/DL (70-100); POTASSIUM SERUM 3.9 MEQ/L (3.5-5.1); SODIUM LEVEL 139 MEQ/L (136-145)
== END ==
LOC: M LAB 15:41
PROVIDERS: ATTEND Physician Assistant
DX: I50.32 Chronic diastolic (congestive) heart failure (principal)

== ENCOUNTER → 2021-06-22 | Outpatient (CLI) | payer MEDICARE ==
[2021-06-22 14:36] LABS: INR 3.48; PROTHROMBIN TIME 35.3 SECONDS (12.7-14.5)
[2021-06-22 14:52] LABS: BLOOD UREA NITROGEN 18 MG/DL (7-18); CARBON DIOXIDE LEVEL 36 MEQ/L (21-32); CHLORIDE LEVEL 100 MEQ/L (98-107); CREATININE FOR GFR 0.91 MG/DL (0.70-1.30); GLOMERULAR FILTRATION RATE > 60.0 (>42); GLUCOSE, FASTING 119 MG/DL (70-100); POTASSIUM SERUM 3.6 MEQ/L (3.5-5.1); SODIUM LEVEL 138 MEQ/L (136-145)
== END ==
LOC: M LAB 13:37
PROVIDERS: ATTEND Physician Assistant
DX: I50.32 Chronic diastolic (congestive) heart failure (principal); I48.21 Permanent atrial fibrillation; Z79.01 Long term (current) use of anticoagulants

== ENCOUNTER → 2021-07-06 | Outpatient (CLI) | payer MEDICARE ==
[2021-07-06 16:22] LABS: INR 2.47; PROTHROMBIN TIME 27.1 SECONDS (12.7-14.5)
== END ==
LOC: M LAB 14:04
PROVIDERS: ATTEND Physician Assistant
DX: I48.21 Permanent atrial fibrillation (principal)

== ENCOUNTER → 2021-07-20 | Outpatient (CLI) | payer MEDICARE ==
--- NOTE | 2021-07-20 11:18 | REP ---
INDICATION: LOW BACK PAIN, UNSPECIFIED COMPARISON: 04/18/2019 TECHNIQUE: PA and lateral. FINDINGS: Mediastinum and cardiac silhouette are stable with mild cardiomegaly and evidence for prior sternotomy/CABG again noted. Lung fernandez demonstrate chronic appearing interstitial changes primarily involving the left lower lung zone. No obvious acute consolidation, definite effusion or pneumothorax. Skeletal structures grossly intact. IMPRESSION: Chronic stable changes. <Electronically signed by David Muse > 07/20/21 [id number]
== END ==
LOC: M RAD 10:53
PROVIDERS: ATTEND Family Medicine
DX: R05.9 Cough, unspecified (principal); I51.7 Cardiomegaly

== ENCOUNTER → 2021-08-05 | Outpatient (CLI) | payer MEDICARE ==
[2021-08-05 16:00] LABS: HEMATOCRIT 46.8 % (42.0-52.0); MEAN CORPUSCULAR HEMOGLOBIN 29.4 pg (27.0-33.0); MEAN CORPUSCULAR HGB CONC 32.1 g/dl (32.0-36.5); MEAN CORPUSCULAR VOLUME 91.6 fl (80.0-96.0); PLATELET COUNT, AUTOMATED 146 10^3/uL (150-450); RED BLOOD COUNT 5.11 10^6/uL (4.30-6.10); WHITE BLOOD COUNT 9.8 10^3/uL (4.0-10.0)
[2021-08-05 16:32] LABS: BLOOD UREA NITROGEN 24 MG/DL (7-18); CALCIUM LEVEL 9.1 MG/DL (8.8-10.2); CARBON DIOXIDE LEVEL 34 MEQ/L (21-32); CHLORIDE LEVEL 98 MEQ/L (98-107); CREATININE FOR GFR 1.13 MG/DL (0.70-1.30); GLOMERULAR FILTRATION RATE > 60.0 (>42); GLUCOSE, FASTING 115 MG/DL (70-100); POTASSIUM SERUM 3.9 MEQ/L (3.5-5.1); SODIUM LEVEL 138 MEQ/L (136-145)
== END ==
LOC: M LAB 15:13
PROVIDERS: ATTEND Physician Assistant
DX: I50.32 Chronic diastolic (congestive) heart failure (principal); I48.21 Permanent atrial fibrillation

== ENCOUNTER → 2021-11-01 | Outpatient (CLI) | payer MEDICARE ==
[2021-11-01 16:07] LABS: INR 1.78; PROTHROMBIN TIME 21.1 SECONDS (12.7-14.5)
== END ==
LOC: M LAB 15:25
PROVIDERS: ATTEND Physician Assistant
DX: I48.21 Permanent atrial fibrillation (principal)

== ENCOUNTER → 2021-11-16 | Outpatient (CLI) | payer MEDICARE ==
[2021-11-16 16:31] LABS: INR 2.14; PROTHROMBIN TIME 24.3 SECONDS (12.7-14.5)
== END ==
LOC: M LAB 15:19
PROVIDERS: ATTEND Physician Assistant
DX: I48.21 Permanent atrial fibrillation (principal); Z79.01 Long term (current) use of anticoagulants

== ENCOUNTER → 2021-12-16 | Outpatient (CLI) | payer MEDICARE ==
[2021-12-16 16:56] LABS: INR 2.19; PROTHROMBIN TIME 24.7 SECONDS (12.7-14.5)
== END ==
LOC: M LAB 15:41
PROVIDERS: ATTEND Physician Assistant
DX: I48.21 Permanent atrial fibrillation (principal); Z79.01 Long term (current) use of anticoagulants

== ENCOUNTER → 2021-12-20 | Outpatient (CLI) | payer MEDICARE ==
[2021-12-20 18:03] LABS: BLOOD UREA NITROGEN 18 MG/DL (7-18); CALCIUM LEVEL 9.1 MG/DL (8.8-10.2); CARBON DIOXIDE LEVEL 37 MEQ/L (21-32); CHLORIDE LEVEL 100 MEQ/L (98-107); CREATININE FOR GFR 0.95 MG/DL (0.70-1.30); GLOMERULAR FILTRATION RATE > 60.0 (>42); GLUCOSE, FASTING 112 MG/DL (70-100); POTASSIUM SERUM 4.2 MEQ/L (3.5-5.1); SODIUM LEVEL 140 MEQ/L (136-145)
== END ==
LOC: M LAB 15:31
PROVIDERS: ATTEND Physician Assistant
DX: I50.32 Chronic diastolic (congestive) heart failure (principal)

== ENCOUNTER → 2022-01-17 | Outpatient (CLI) | payer MEDICARE ==
[2022-01-17 11:58] LABS: INR 1.95; PROTHROMBIN TIME 22.6 SECONDS (12.7-14.5)
== END ==
LOC: M LAB 11:00
PROVIDERS: ATTEND Physician Assistant
DX: I48.21 Permanent atrial fibrillation (principal); Z79.01 Long term (current) use of anticoagulants

== ENCOUNTER → 2022-02-14 | Outpatient (CLI) | payer MEDICARE ==
[2022-02-14 16:39] LABS: INR 1.83; PROTHROMBIN TIME 21.6 SECONDS (12.7-14.5)
== END ==
LOC: M LAB 15:37
PROVIDERS: ATTEND Physician Assistant
DX: I48.21 Permanent atrial fibrillation (principal); Z79.01 Long term (current) use of anticoagulants

== ENCOUNTER → 2022-04-28 | Outpatient (CLI) | payer MEDICARE ==
[2022-04-28 17:17] LABS: INR 2.82
== END ==
LOC: M LAB 15:51
PROVIDERS: ATTEND Physician Assistant
DX: I48.21 Permanent atrial fibrillation (principal); Z79.01 Long term (current) use of anticoagulants

== ENCOUNTER → 2022-06-01 | Outpatient (CLI) | payer MEDICARE ==
[2022-06-01 12:30] LABS: HEMATOCRIT 45.8 % (42.0-52.0); HEMOGLOBIN 14.5 g/dl (13.5-17.5); MEAN CORPUSCULAR HEMOGLOBIN 28.6 pg (27.0-33.0); MEAN CORPUSCULAR HGB CONC 31.7 g/dl (32.0-36.5); MEAN CORPUSCULAR VOLUME 90.3 fl (80.0-96.0); PLATELET COUNT, AUTOMATED 161 10^3/uL (150-450); RED BLOOD COUNT 5.07 10^6/uL (4.30-6.10); WHITE BLOOD COUNT 7.6 10^3/uL (4.0-10.0)
[2022-06-01 13:11] LABS: ALBUMIN 3.4 GM/DL (3.2-5.2); ALT/SGPT 30 U/L (12-78); BILIRUBIN,TOTAL 1.2 MG/DL (0.2-1.0); BLOOD UREA NITROGEN 12 MG/DL (7-18); CARBON DIOXIDE LEVEL 36 MEQ/L (21-32); CHLORIDE LEVEL 99 MEQ/L (98-107); CHOLESTEROL LEVEL 95 MG/DL (<200); CHOLESTEROL RISK RATIO 2.638 (<5); CREATININE FOR GFR 0.87 MG/DL (0.70-1.30); GLOMERULAR FILTRATION RATE > 60.0 (>42); GLUCOSE, FASTING 106 MG/DL (70-100); HDL CHOLESTEROL 36 MG/DL (>40); LDL CHOLESTEROL 34 MG/DL (<100); MAGNESIUM LEVEL 2.3 MG/DL (1.8-2.4); NON-HDL-C 59 MG/DL; POTASSIUM SERUM 3.6 MEQ/L (3.5-5.1); SODIUM LEVEL 138 MEQ/L (136-145); TOTAL PROTEIN 8.6 GM/DL (6.4-8.2); TRIGLYCERIDES LEVEL 125 MG/DL (<150)
== END ==
LOC: M LAB 11:55
PROVIDERS: ATTEND Physician Assistant
DX: I25.10 Atherosclerotic heart disease of native coronary artery without angina pectoris (principal); I50.32 Chronic diastolic (congestive) heart failure; I48.21 Permanent atrial fibrillation; E78.00 Pure hypercholesterolemia, unspecified

== ENCOUNTER → 2022-06-29 | Outpatient (CLI) | payer MEDICARE ==
[2022-06-29 14:58] LABS: INR 2.44; PROTHROMBIN TIME 26.9 SECONDS (12.5-14.5)
== END ==
LOC: M LAB 14:12
PROVIDERS: ATTEND Physician Assistant
DX: I48.21 Permanent atrial fibrillation (principal); Z79.01 Long term (current) use of anticoagulants

== ENCOUNTER → 2022-07-11 | Outpatient (CLI) | payer MEDICARE ==
[2022-07-11 16:13] LABS: INR 1.49; PROTHROMBIN TIME 18.3 SECONDS (12.5-14.5)
== END ==
LOC: M LAB 14:50
PROVIDERS: ATTEND Physician Assistant
DX: I48.21 Permanent atrial fibrillation (principal); Z79.01 Long term (current) use of anticoagulants

== ENCOUNTER → 2022-07-26 | Outpatient (CLI) | payer MEDICARE ==
[2022-07-26 15:23] LABS: INR 1.75; PROTHROMBIN TIME 20.8 SECONDS (12.5-14.5)
== END ==
LOC: M LAB 14:43
PROVIDERS: ATTEND Physician Assistant
DX: I48.21 Permanent atrial fibrillation (principal); Z79.01 Long term (current) use of anticoagulants

== ENCOUNTER → 2022-08-08 | Outpatient (CLI) | payer MEDICARE | LOC: M PLARAD 09:18 | PROVIDERS: ATTEND Nurse Practitioner Adult Health | DX: R91.8 Other nonspecific abnormal finding of lung field (principal) | CPT/HCPCS: 78815; A9552 ==

== ENCOUNTER → 2022-08-10 | Outpatient (CLI) | payer MEDICARE ==
[2022-08-10 15:53] LABS: INR 1.69; PROTHROMBIN TIME 20.2 SECONDS (12.5-14.5)
== END ==
LOC: M LAB 15:24
PROVIDERS: ATTEND Physician Assistant
DX: I48.21 Permanent atrial fibrillation (principal); Z79.01 Long term (current) use of anticoagulants

== ENCOUNTER → 2022-08-25 | Outpatient (CLI) | payer MEDICARE ==
[2022-08-25 12:31] LABS: BASO # 0.1 10^3/uL (0.0-0.2); BASO % 0.8 % (0.0-1.0); EOS # 0.2 10^3/uL (0.0-0.5); EOS % 2.8 % (0.0-3.0); HEMATOCRIT 46.1 % (42.0-52.0); HEMOGLOBIN 14.5 g/dl (13.5-17.5); LYMPH # 1.7 10^3/uL (1.5-5.0); LYMPH % 23.7 % (24.0-44.0); MEAN CORPUSCULAR HEMOGLOBIN 28.3 pg (27.0-33.0); MEAN CORPUSCULAR HGB CONC 31.5 g/dl (32.0-36.5); MONO # 0.7 10^3/uL (0.0-0.8); MONO % 9.3 % (2.0-8.0); NEUTROPHILS # 4.5 10^3/uL (1.5-8.5); NEUTROPHILS % 63.3 % (36.0-66.0); PLATELET COUNT, AUTOMATED 129 10^3/uL (150-450); RED BLOOD COUNT 5.12 10^6/uL (4.30-6.10); WHITE BLOOD COUNT 7.2 10^3/uL (4.0-10.0)
[2022-08-25 12:51] LABS: ALBUMIN 3.5 G/DL (3.2-5.2); ALKALINE PHOSPHATASE 180 U/L (46-116); ALT/SGPT 24 U/L (7.0-40); AST/SGOT 29 U/L (<34); BILIRUBIN,TOTAL 1.5 MG/DL (0.3-1.2); BLOOD UREA NITROGEN 15 MG/DL (9-23); CARBON DIOXIDE LEVEL 29 MMOL/L (20-31); CHLORIDE LEVEL 99 MMOL/L (98-107); CHOLESTEROL LEVEL 109 MG/DL (<200); CHOLESTEROL RISK RATIO 3.27 (<5); CREATININE FOR GFR 0.86 MG/DL (0.70-1.30); GLOMERULAR FILTRATION RATE > 60.0 (>42); GLUCOSE, FASTING 121 MG/DL (74-106); HDL CHOLESTEROL 33.3 MG/DL (>40); LDL CHOLESTEROL 51.5 MG/DL (<100); NON-HDL-C 76 MG/DL; SODIUM LEVEL 139 MMOL/L (136-145); TOTAL PROTEIN 7.8 G/DL (5.7-8.2); TRIGLYCERIDES LEVEL 121 MG/DL (<150)
[2022-08-25 13:09] LABS: THYROID STIMULATING HORMONE 1.081 uIU/ML (0.55-4.78)
== END ==
LOC: M LAB 11:44
PROVIDERS: ATTEND Family Medicine
DX: I10 Essential (primary) hypertension (principal)

== ENCOUNTER → 2022-08-25 | Outpatient (CLI) | payer MEDICARE ==
[2022-08-25 12:45] LABS: INR 2.47; PROTHROMBIN TIME 27.2 SECONDS (12.5-14.5)
== END ==
LOC: M LAB 11:41
PROVIDERS: ATTEND Physician Assistant
DX: I48.21 Permanent atrial fibrillation (principal); Z79.01 Long term (current) use of anticoagulants

== ENCOUNTER → 2022-09-22 | Outpatient (CLI) | payer MEDICARE ==
[~2022-09-22] MED LIST changes: +FLUT1BLS8; +LOSA25TA13 PO; +MV-M1CAP8 PO; +NYST-38 SS; -NYST50SS SS; +OMEP-173 PO; +PRESCAP PO
[2022-09-22 15:44] LABS: INR 2.59; PROTHROMBIN TIME 28.2 SECONDS (12.5-14.5)
[2022-09-22 15:45] LABS: PARTIAL THROMBOPLASTIN TIME 42.4 SECONDS (24.8-34.2)
[2022-09-22 16:07] LABS: PLATELET COUNT, AUTOMATED 182 10^3/uL (150-450)
== END ==
LOC: M LAB 14:52
PROVIDERS: ATTEND Internal Medicine Pulmonary Disease
DX: R91.8 Other nonspecific abnormal finding of lung field (principal)

== ENCOUNTER 2022-09-28 07:04 | Day surgery (SDC) | payer MEDICARE ==
[~2022-09-28] VITALS: Ht 167.6 cm; Wt 89.4 kg
[~2022-09-28 07:04] MED LIST changes: +ALBUTEROL SULFATE 2.5MG/0.5ML INH NEB SOLN INH ONE; +LIDOCAINE PRES-FREE 2% 10ML AMP INH ONE
[2022-09-28] MEDS ORDERED: LR 1,000 ML IV SCH (07:30)
[2022-09-28] MEDS ORDERED: ELIQ5TAB PO (08:01)
[2022-09-28] MEDS ORDERED: MIDAZOLAM INJ 2MG/2ML VIAL As Ordered ONE (08:09)
[2022-09-28] MEDS ORDERED: GLYCOPYRROLATE INJ 0.2 MG/ML 2 ML VIAL As Ordered ONE (08:10)
[2022-09-28] MEDS ORDERED: propofoL 200 MG/20 ML VIAL As Ordered ONE (08:10)
[2022-09-28] MEDS ORDERED: ONDANSETRON 4MG 2ML VIAL As Ordered ONE (08:10)
[2022-09-28] MEDS ORDERED: fentaNYL 100 MCG/2 ML INJECTION As Ordered ONE (08:10)
[2022-09-28 08:56] LABS: INR 1.43; PROTHROMBIN TIME 17.7 SECONDS (12.5-14.5)
[2022-09-28] MEDS ORDERED: LIDOCAINE 1% SDV 30ML VIAL As Ordered ONE (09:01)
[2022-09-28] MEDS ORDERED: LIDOCAINE VISCOUS 2% SOLN 15ML UDC As Ordered ONE (09:01)
[2022-09-28] MEDS ORDERED: CETACAINE SPRAY 5GM As Ordered ONE (09:15)
[2022-09-28] MEDS ORDERED: ONDANSETRON 4MG 2ML VIAL IV PRN (09:35)
[2022-09-28 11:38] VITALS: BP 137/89
== END 2022-09-28 11:45 | disposition home or self-care (01) ==
LOC: M SDC 07:04
PROVIDERS: ATTEND Internal Medicine Pulmonary Disease
DX: R05.1 Acute cough (principal); J95.61 Intraoperative hemorrhage and hematoma of a respiratory system organ or structure complicating a respiratory system procedure; Z53.8 Procedure and treatment not carried out for other reasons; I48.91 Unspecified atrial fibrillation; I25.10 Atherosclerotic heart disease of native coronary artery without angina pectoris; I25.2 Old myocardial infarction; I10 Essential (primary) hypertension; K21.9 Gastro-esophageal reflux disease without esophagitis; Z95.1 Presence of aortocoronary bypass graft; J45.909 Unspecified asthma, uncomplicated; Z88.8 Allergy status to other drugs, medicaments and biological substances; Z91.010 Allergy to peanuts; Z79.899 Other long term (current) drug therapy; Z79.01 Long term (current) use of anticoagulants
CPT/HCPCS: 31622; 36415; 85610; J2405

== ENCOUNTER → 2022-10-06 | Outpatient (CLI) | payer MEDICARE ==
[~2022-10-06] MED LIST changes: -ALBUTEROL SULFATE 2.5MG/0.5ML INH NEB SOLN INH ONE; +ELIQ5TAB PO; -LIDOCAINE PRES-FREE 2% 10ML AMP INH ONE
[2022-10-06 16:11] LABS: BLOOD UREA NITROGEN 15 MG/DL (9-23); CALCIUM LEVEL 8.8 MG/DL (8.3-10.6); CARBON DIOXIDE LEVEL 34 MMOL/L (20-31); CHLORIDE LEVEL 99 MMOL/L (98-107); CREATININE FOR GFR 0.88 MG/DL (0.70-1.30); GLOMERULAR FILTRATION RATE > 60.0 (>42); GLUCOSE, FASTING 98 MG/DL (74-106); POTASSIUM SERUM 4.5 MMOL/L (3.5-5.1); SODIUM LEVEL 137 MMOL/L (136-145)
== END ==
LOC: M LAB 14:43
PROVIDERS: ATTEND Physician Assistant
DX: I50.32 Chronic diastolic (congestive) heart failure (principal)

== ENCOUNTER → 2022-11-02 | Outpatient (CLI) | payer MEDICARE ==
[2022-11-02 15:26] LABS: BLOOD UREA NITROGEN 25 MG/DL (9-23); CALCIUM LEVEL 9.2 MG/DL (8.3-10.6); CARBON DIOXIDE LEVEL 36 MMOL/L (20-31); CHLORIDE LEVEL 98 MMOL/L (98-107); CREATININE FOR GFR 1.04 MG/DL (0.70-1.30); GLOMERULAR FILTRATION RATE > 60.0 (>42); GLUCOSE, FASTING 100 MG/DL (74-106); POTASSIUM SERUM 4.2 MMOL/L (3.5-5.1); SODIUM LEVEL 138 MMOL/L (136-145)
== END ==
LOC: M LAB 14:19
PROVIDERS: ATTEND Physician Assistant
DX: I50.32 Chronic diastolic (congestive) heart failure (principal)

== ENCOUNTER → 2022-12-05 | Outpatient (CLI) | payer MEDICARE ==
[2022-12-05 20:04] LABS: BLOOD UREA NITROGEN 20 MG/DL (9-23); CALCIUM LEVEL 8.9 MG/DL (8.3-10.6); CARBON DIOXIDE LEVEL 36 MMOL/L (20-31); CHLORIDE LEVEL 95 MMOL/L (98-107); CREATININE FOR GFR 0.97 MG/DL (0.70-1.30); GLOMERULAR FILTRATION RATE > 60.0 (>42); GLUCOSE, FASTING 98 MG/DL (74-106); SODIUM LEVEL 135 MMOL/L (136-145)
== END ==
LOC: M LAB 14:13
PROVIDERS: ATTEND Physician Assistant
DX: I50.32 Chronic diastolic (congestive) heart failure (principal)

== ENCOUNTER → 2022-12-15 | Outpatient (CLI) | payer MEDICARE | LOC: M RAD 15:16 | PROVIDERS: ATTEND Internal Medicine Pulmonary Disease | DX: R91.8 Other nonspecific abnormal finding of lung field (principal); J98.09 Other diseases of bronchus, not elsewhere classified; J98.19 Other pulmonary collapse; R59.0 Localized enlarged lymph nodes; K80.80 Other cholelithiasis without obstruction ==

== ENCOUNTER → 2022-12-19 | Outpatient (CLI) | payer MEDICARE ==
[2022-12-19 17:24] LABS: BLOOD UREA NITROGEN 20 MG/DL (9-23); CARBON DIOXIDE LEVEL 36 MMOL/L (20-31); CHLORIDE LEVEL 98 MMOL/L (98-107); CREATININE FOR GFR 0.95 MG/DL (0.70-1.30); GLOMERULAR FILTRATION RATE > 60.0 (>42); GLUCOSE, FASTING 88 MG/DL (74-106); POTASSIUM SERUM 4.1 MMOL/L (3.5-5.1); SODIUM LEVEL 138 MMOL/L (136-145)
== END ==
LOC: M PLALAB 12:04
PROVIDERS: ATTEND Physician Assistant
DX: I50.32 Chronic diastolic (congestive) heart failure (principal)

== ENCOUNTER → 2022-12-30 | Outpatient (CLI) | payer MEDICARE ==
[2022-12-30 17:47] LABS: BLOOD UREA NITROGEN 27 MG/DL (9-23); CALCIUM LEVEL 8.5 MG/DL (8.3-10.6); CARBON DIOXIDE LEVEL 30 MMOL/L (20-31); CHLORIDE LEVEL 102 MMOL/L (98-107); CREATININE FOR GFR 1.08 MG/DL (0.70-1.30); GLOMERULAR FILTRATION RATE > 60.0 (>42); GLUCOSE, FASTING 99 MG/DL (74-106); POTASSIUM SERUM 3.4 MMOL/L (3.5-5.1); SODIUM LEVEL 139 MMOL/L (136-145)
== END ==
LOC: M LAB 15:10
PROVIDERS: ATTEND Physician Assistant
DX: I50.32 Chronic diastolic (congestive) heart failure (principal)

== ENCOUNTER → 2023-01-10 | Outpatient (CLI) | payer MEDICARE ==
[~2023-01-10] MED LIST changes: +ALBU2.5V10 INH; +D 1010004 PO; +MUCI1TAB16 PO; +PRES10CA2 PO; +SPIR-10 PO; +TORS20TA2 PO
[2023-01-10 12:42] LABS: PLATELET COUNT, AUTOMATED 171 10^3/uL (150-450)
[2023-01-10 13:03] LABS: INR 1.12; PARTIAL THROMBOPLASTIN TIME 31.9 SECONDS (24.8-34.2); PROTHROMBIN TIME 14.6 SECONDS (12.5-14.5)
== END ==
LOC: M LAB 11:37
PROVIDERS: ATTEND Internal Medicine Pulmonary Disease
DX: R91.8 Other nonspecific abnormal finding of lung field (principal); Z79.01 Long term (current) use of anticoagulants

== ENCOUNTER 2023-01-11 06:08 | Day surgery (SDC) | payer MEDICARE ==
[~2023-01-11] VITALS: Ht 167.6 cm; Wt 88.5 kg
[2023-01-11] MEDS ORDERED: GLYCOPYRROLATE INJ 0.2 MG/ML 2 ML VIAL As Ordered ONE (07:04)
[2023-01-11] MEDS ORDERED: propofoL 200 MG/20 ML VIAL As Ordered ONE (07:04)
[2023-01-11] MEDS ORDERED: ROCURONIUM BROMIDE 50MG/5ML VIAL As Ordered ONE ×2 (07:04→08:44)
[2023-01-11] MEDS ORDERED: LIDOCAINE 2% 100MG/5ML SDV (FOR ANES.) As Ordered ONE (07:04)
[2023-01-11] MEDS ORDERED: fentaNYL 100 MCG/2 ML INJECTION As Ordered ONE (07:06)
[2023-01-11] MEDS ORDERED: LR 1,000 ML IV SCH ×2 (07:10→08:10)
[2023-01-11] MEDS ORDERED: CETACAINE SPRAY 5GM As Ordered ONE (07:20)
[2023-01-11] MEDS ORDERED: THROMBIN 5,000 UNITS VIAL As Ordered ONE (07:20)
[2023-01-11] MEDS ORDERED: EPINEPHrine 1MG/10ML SYRINGE 1.5IN As Ordered ONE (07:20)
[2023-01-11] MEDS ORDERED: SUGAMMADEX SODIUM 500 MG/5 ML VIAL (BRIDION) As Ordered ONE (08:00)
[2023-01-11] MEDS ORDERED: ONDANSETRON 4MG 2ML VIAL IV PRN (08:10)
[2023-01-11] MEDS ORDERED: fentaNYL 100 MCG/2 ML INJECTION IV PRN (08:10)
[2023-01-11] MEDS ORDERED: LEVALBUTEROL 1.25MG 0.5ML CONCENTRATE NEB INH ONE (08:15)
[2023-01-11 09:56] VITALS: BP 120/72
== END 2023-01-11 09:56 | disposition home or self-care (01) ==
LOC: M SDC 06:08
PROVIDERS: ATTEND Internal Medicine Pulmonary Disease
DX: A49.2 Hemophilus influenzae infection, unspecified site (principal); J81.1 Chronic pulmonary edema; J45.50 Severe persistent asthma, uncomplicated; G47.33 Obstructive sleep apnea (adult) (pediatric); I27.20 Pulmonary hypertension, unspecified; I25.10 Atherosclerotic heart disease of native coronary artery without angina pectoris; I25.2 Old myocardial infarction; Z95.1 Presence of aortocoronary bypass graft; I11.0 Hypertensive heart disease with heart failure; I50.32 Chronic diastolic (congestive) heart failure; I48.20 Chronic atrial fibrillation, unspecified; I45.10 Unspecified right bundle-branch block; E78.00 Pure hypercholesterolemia, unspecified; Z79.899 Other long term (current) drug therapy; Z79.51 Long term (current) use of inhaled steroids; Z79.01 Long term (current) use of anticoagulants; Z88.8 Allergy status to other drugs, medicaments and biological substances; Z91.018 Allergy to other foods
CPT/HCPCS: 31624; 31628; 87070; 87077; 87102; 87116; 87184; 87205; 87206; 88104; 88305; J0171; J3010

== ENCOUNTER → 2023-01-16 | Outpatient (CLI) | payer MEDICARE ==
[2023-01-16 16:19] LABS: BLOOD UREA NITROGEN 34 MG/DL (9-23); CARBON DIOXIDE LEVEL 34 MMOL/L (20-31); CHLORIDE LEVEL 96 MMOL/L (98-107); CREATININE FOR GFR 1.07 MG/DL (0.70-1.30); GLOMERULAR FILTRATION RATE > 60.0 (>42); GLUCOSE, FASTING 134 MG/DL (74-106); POTASSIUM SERUM 4.8 MMOL/L (3.5-5.1); SODIUM LEVEL 136 MMOL/L (136-145)
== END ==
LOC: M LAB 14:55
PROVIDERS: ATTEND Physician Assistant
DX: I50.32 Chronic diastolic (congestive) heart failure (principal)

== ENCOUNTER → 2023-02-20 | Outpatient (CLI) | payer MEDICARE ==
[2023-02-20 16:06] LABS: BLOOD UREA NITROGEN 19 MG/DL (9-23); CALCIUM LEVEL 8.9 MG/DL (8.3-10.6); CARBON DIOXIDE LEVEL 32 MMOL/L (20-31); CHLORIDE LEVEL 99 MMOL/L (98-107); CREATININE FOR GFR 1.04 MG/DL (0.70-1.30); GLOMERULAR FILTRATION RATE > 60.0 (>42); GLUCOSE, FASTING 117 MG/DL (74-106); POTASSIUM SERUM 4.3 MMOL/L (3.5-5.1); SODIUM LEVEL 137 MMOL/L (136-145)
== END ==
LOC: M LAB 15:02
PROVIDERS: ATTEND Physician Assistant
DX: I50.32 Chronic diastolic (congestive) heart failure (principal); I48.21 Permanent atrial fibrillation

== ENCOUNTER → 2023-02-27 | Outpatient (CLI) | payer MEDICARE | LOC: M RAD 10:37 | PROVIDERS: ATTEND Internal Medicine Pulmonary Disease | DX: R91.8 Other nonspecific abnormal finding of lung field (principal); J98.11 Atelectasis ==

== ENCOUNTER → 2023-05-15 | Outpatient (CLI) | payer MEDICARE | LOC: M RAD 16:09 | PROVIDERS: ATTEND Internal Medicine Pulmonary Disease | DX: R91.8 Other nonspecific abnormal finding of lung field (principal); K74.60 Unspecified cirrhosis of liver; J98.11 Atelectasis ==

== ENCOUNTER → 2023-06-28 | Outpatient (CLI) | payer MEDICARE ==
[2023-06-28 15:50] LABS: HEMATOCRIT 43.8 % (42.0-52.0); HEMOGLOBIN 14.3 g/dl (13.5-17.5); MEAN CORPUSCULAR HGB CONC 32.6 g/dl (32.0-36.5); MEAN CORPUSCULAR VOLUME 91.8 fl (80.0-96.0); PLATELET COUNT, AUTOMATED 177 10^3/uL (150-450); RED BLOOD COUNT 4.77 10^6/uL (4.30-6.10); WHITE BLOOD COUNT 9.1 10^3/uL (4.0-10.0)
[2023-06-28 16:14] LABS: BLOOD UREA NITROGEN 18 MG/DL (9-23); CARBON DIOXIDE LEVEL 35 MMOL/L (20-31); CHLORIDE LEVEL 98 MMOL/L (98-107); CREATININE FOR GFR 0.93 MG/DL (0.70-1.30); GLOMERULAR FILTRATION RATE > 60.0 (>42); GLUCOSE, FASTING 160 MG/DL (74-106); POTASSIUM SERUM 4.5 MMOL/L (3.5-5.1); SODIUM LEVEL 135 MMOL/L (136-145)
== END ==
LOC: M LAB 14:55
PROVIDERS: ATTEND Physician Assistant
DX: I50.32 Chronic diastolic (congestive) heart failure (principal)

== ENCOUNTER → 2023-07-24 | Outpatient (CLI) | payer MEDICARE ==
[2023-07-24 11:27] LABS: HEMATOCRIT 46.5 % (42.0-52.0); HEMOGLOBIN 14.9 g/dl (13.5-17.5); MEAN CORPUSCULAR HEMOGLOBIN 29.4 pg (27.0-33.0); MEAN CORPUSCULAR VOLUME 91.7 fl (80.0-96.0); PLATELET COUNT, AUTOMATED 187 10^3/uL (150-450); RED BLOOD COUNT 5.07 10^6/uL (4.30-6.10); WHITE BLOOD COUNT 11.1 10^3/uL (4.0-10.0)
[2023-07-24 11:58] LABS: ALBUMIN 3.8 G/DL (3.2-5.2); ALKALINE PHOSPHATASE 119 U/L (46-116); ALT/SGPT 37 U/L (7.0-40); AST/SGOT 25 U/L (<34); BILIRUBIN,TOTAL 1.1 MG/DL (0.3-1.2); BLOOD UREA NITROGEN 20 MG/DL (9-23); CALCIUM LEVEL 9.2 MG/DL (8.3-10.6); CARBON DIOXIDE LEVEL 35 MMOL/L (20-31); CHLORIDE LEVEL 97 MMOL/L (98-107); CHOLESTEROL LEVEL 152 MG/DL (<200); CHOLESTEROL RISK RATIO 2.81 (<5); GLOMERULAR FILTRATION RATE > 60.0 (>42); GLUCOSE, FASTING 145 MG/DL (74-106); MAGNESIUM LEVEL 2.2 MG/DL (1.8-2.4); POTASSIUM SERUM 3.5 MMOL/L (3.5-5.1); SODIUM LEVEL 140 MMOL/L (136-145); TOTAL PROTEIN 7.6 G/DL (5.7-8.2); TRIGLYCERIDES LEVEL 165 MG/DL (<150)
== END ==
LOC: M LAB 10:43
PROVIDERS: ATTEND Physician Assistant
DX: I50.32 Chronic diastolic (congestive) heart failure (principal); E78.00 Pure hypercholesterolemia, unspecified; I25.10 Atherosclerotic heart disease of native coronary artery without angina pectoris; E83.42 Hypomagnesemia

== ENCOUNTER → 2023-11-10 | Outpatient (CLI) | payer MEDICARE, OTHER, SELFPAY ==
[2023-11-10 16:28] LABS: BLOOD UREA NITROGEN 18 MG/DL (9-23); CALCIUM LEVEL 8.5 MG/DL (8.3-10.6); CARBON DIOXIDE LEVEL 33 MMOL/L (20-31); CHLORIDE LEVEL 98 MMOL/L (98-107); CREATININE FOR GFR 0.98 MG/DL (0.70-1.30); GLOMERULAR FILTRATION RATE > 60.0 (>42); GLUCOSE, FASTING 151 MG/DL (74-106); POTASSIUM SERUM 3.9 MMOL/L (3.5-5.1); SODIUM LEVEL 133 MMOL/L (136-145)
== END ==
LOC: M LAB 15:09
PROVIDERS: ATTEND Physician Assistant
DX: I50.32 Chronic diastolic (congestive) heart failure (principal)

== ENCOUNTER 2023-12-13 10:53 | Emergency (ER) | payer OTHER ==
[~2023-12-13] VITALS: Ht 167.6 cm; Wt 90.0 kg
[2023-12-13] MEDS: ACETAMINOPHEN TAB 650MG DOSE (2X325MG) PO ONE (13:24)
[2023-12-13] MEDS: traMADol 50 MG TAB PO ONE (13:24)
[2023-12-13] MEDS: diazePAM 10MG/2ML SYRINGE IM ONE (13:25)
[2023-12-13] MEDS ORDERED: METH-1164 PO (14:28)
[2023-12-13] MEDS ORDERED: TRAM50TA2 PO (14:28)
[2023-12-13 14:39] VITALS: BP 133/82; TEMP 98.6; O2SAT 93
== END 2023-12-13 14:40 | disposition home or self-care (01) ==
LOC: M ED 10:53
DX: M54.2 Cervicalgia (principal); I48.91 Unspecified atrial fibrillation; I25.2 Old myocardial infarction; I10 Essential (primary) hypertension; K21.9 Gastro-esophageal reflux disease without esophagitis; E03.9 Hypothyroidism, unspecified; Z88.8 Allergy status to other drugs, medicaments and biological substances; Z91.010 Allergy to peanuts; Z79.1 Long term (current) use of non-steroidal anti-inflammatories (NSAID); Z79.51 Long term (current) use of inhaled steroids; Z79.810 Long term (current) use of selective estrogen receptor modulators (SERMs); Z79.899 Other long term (current) drug therapy
CPT/HCPCS: 70450; 72125; 96372; 99283; J3360

== ENCOUNTER → 2024-02-12 | Outpatient (CLI) | payer OTHER ==
[~2024-02-12] MED LIST changes: +METH-1164 PO; +TRAM50TA2 PO
[2024-02-12 15:28] LABS: BLOOD UREA NITROGEN 21 MG/DL (9-23); CARBON DIOXIDE LEVEL 32 MMOL/L (20-31); CHLORIDE LEVEL 101 MMOL/L (98-107); CREATININE FOR GFR 0.89 MG/DL (0.70-1.30); GLOMERULAR FILTRATION RATE > 60.0 (>42); GLUCOSE, FASTING 155 MG/DL (74-106); POTASSIUM SERUM 4.6 MMOL/L (3.5-5.1); SODIUM LEVEL 138 MMOL/L (136-145)
== END ==
LOC: M LAB 14:27
PROVIDERS: ATTEND Physician Assistant
DX: I50.32 Chronic diastolic (congestive) heart failure (principal)

== ENCOUNTER → 2024-06-17 | Outpatient (CLI) | payer OTHER, MEDICAID ==
[~2024-06-17] MED LIST changes: +TRAM1TAB42 PO; -TRAM37.53 PO
== END ==
LOC: M RAD 14:29
PROVIDERS: ATTEND Internal Medicine Pulmonary Disease
DX: R91.8 Other nonspecific abnormal finding of lung field (principal)

== ENCOUNTER → 2024-10-30 | Outpatient (CLI) | payer MEDICARE, MEDICAID | LOC: M CARPUL 16:51 | PROVIDERS: ATTEND Physician Assistant | DX: R06.02 Shortness of breath (principal); I08.0 Rheumatic disorders of both mitral and aortic valves; I35.8 Other nonrheumatic aortic valve disorders; I37.1 Nonrheumatic pulmonary valve insufficiency ==

== ENCOUNTER → 2024-11-04 | Outpatient (CLI) | payer MEDICARE, MEDICAID ==
[2024-11-04 17:19] LABS: HEMATOCRIT 45.3 % (42.0-52.0); MEAN CORPUSCULAR HEMOGLOBIN 27.2 pg (27.0-33.0); MEAN CORPUSCULAR HGB CONC 30.9 g/dl (32.0-36.5); PLATELET COUNT, AUTOMATED 171 10^3/uL (150-450); RED BLOOD COUNT 5.15 10^6/uL (4.30-6.10); WHITE BLOOD COUNT 8.8 10^3/uL (4.0-10.0)
[2024-11-04 17:46] LABS: BLOOD UREA NITROGEN 19 MG/DL (9-23); CALCIUM LEVEL 9.3 MG/DL (8.3-10.6); CARBON DIOXIDE LEVEL 31 MMOL/L (20-31); CHLORIDE LEVEL 103 MMOL/L (98-107); CREATININE FOR GFR 0.86 MG/DL (0.70-1.30); GLOMERULAR FILTRATION RATE > 60.0 (>35); GLUCOSE, FASTING 154 MG/DL (74-106); SODIUM LEVEL 139 MMOL/L (136-145)
== END ==
LOC: M LAB 16:12
PROVIDERS: ATTEND Physician Assistant
DX: R06.02 Shortness of breath (principal); I50.32 Chronic diastolic (congestive) heart failure

== ENCOUNTER → 2025-01-20 | Outpatient (CLI) | payer MEDICARE, MEDICAID | LOC: M PLAIMG 12:16 | PROVIDERS: ATTEND Internal Medicine Pulmonary Disease | DX: J47.9 Bronchiectasis, uncomplicated (principal); J98.4 Other disorders of lung; J98.11 Atelectasis; R91.8 Other nonspecific abnormal finding of lung field; I25.10 Atherosclerotic heart disease of native coronary artery without angina pectoris; I51.7 Cardiomegaly; Z95.1 Presence of aortocoronary bypass graft; K80.20 Calculus of gallbladder without cholecystitis without obstruction ==